=== PATIENT | male | born 1940 | race Caucasian/White ===

== ENCOUNTER → 2016-10-24 | Day surgery (SDC) | payer BC ==
[2016-10-18 09:15] VITALS: Ht 198.1 cm; Wt 95.5 kg
[~2016-10-24] VITALS: Ht 198.1 cm; Wt 95.5 kg
[~2016-10-24] MED LIST: 500ML BSS 0.3ML EPI 1:1000PF IRRIG ONE; ACETAMINOPHEN 325 MG TAB PO PRN; AMVISC PLUS 0.8ML SYRINGE INT OCU ONE; ATROPINE SULFATE 0.1 MG/ML 5ML SYR IV PRN; AcetaZOLAMIDE 250 MG TAB PO SCH; BETAXOLOL HCL 0.25% OP SUSP PER DROP CHARGE OPL SCH; BRIMONIDINE TART 0.2% OP SOLN PER DROP CHARGE ONE; BSS FLUSH ONE; ENDOCOAT 0.85ML SYRINGE INT OCU ONE; EpHEDrine SULFATE INJ 50 MG/ML AMP IV PRN; EpINEphrine INJ 1MG/ML AMP 1 MG/ML AMP ONE; GLUCTAB18 PO; LACTATED RINGER'S 1000ML 500 ML IV SCH; LIDOCAINE 4% OP SOLN DROP CHARGE ONE; LIDOCAINE 4% OP SOLN DROP CHARGE OPL SCH; LIDOCAINE HCL 1% MPF 2 ML VIAL ONE; MIDAZOLAM HCL 1 MG/ML 2ML VIAL ONE; MIX: 4ML BSS 1ML EPI 1:1000 PF INSTIL ONE; MOXIFLOXACIN OPH SOLN PER DROP CHARGE ONE; NAPR1TAB9 PO; OCUCOAT 1 ML SOLN IO ONE; POVIDONE-IODINE OP SOLN 30 ML BTL ONE; PRED1SUS3 OPL; PROPARACAINE 0.5% OP SOLN PER DROP CHARGE OPL SCH; TERA5CAP PO; TOBRAMYCIN/DEXAMETHASONE OPH OINT PER APPLN CHARGE ONE
--- NOTE | 2016-10-24 09:11 | History & Physical Bridge - [place] ---
H&P Re-Evaluation Bridge Note: I have examined the patient, reviewed the History & Physical and in the interval since the performance of the History & Physical I have noted the following changes of clinical significance: No changes noted
[2016-10-24] MEDS: PHENYLEPHRINE HCL 2.5% OP SOLN PER DROP CHARGE OPL SCH ×2 (10:17→10:22)
[2016-10-24] MEDS: TROPICAMIDE 1% OP SOLN PER DROP CHARGE OPL SCH ×2 (10:18→10:23)
[2016-10-24] MEDS: CYCLOPENTOLATE HCL 1% OP SOLN PER DROP CHARGE OPL SCH ×2 (10:19→10:24)
[2016-10-24] MEDS: MOXIFLOXACIN OPH SOLN PER DROP CHARGE OPL SCH ×2 (10:20→10:31)
--- NOTE | 2016-10-24 11:04 | Discharge Instructions-SurgCtr ---
Discharge Instructions Date of Service Oct 24, 2016. Visit Reason for Visit: Cataract Left Eye Discharge Discharge Diagnosis / Problem: lens implant left eye Discharge Goals Goal(s): Improve function Activity Recommendations Activity Limitations: resume your previous activity Lifting Limitations: no more than 10 pounds Exercise/Sports Limitations: gradually increase as tolerated May Resume Sexual Activity: when tolerated Shower/Bathe: tomorrow Driving or Machine Use: resume 1 day after discharge Anesthesia . Post Anesthesia Instructions: If you have had General Anesthesia or IV Sedation: * Do not drive today. * Resume driving when surgeon permits. * Do not make important decisions or sign legal documents today. * Call surgeon for: 1. Temperature elevations greater than 101 degrees F. 2. Uncontrollable pain. 3. Excessive bleeding. 4. Persistent nausea and vomiting. 5. Medication intolerance (nausea, vomiting or rash). * For nausea and vomiting use only clear liquids such as: tea, soda, bouillon until nausea subsides, then gradually increase diet as tolerated. * If you have any concerns or questions, call your surgeon's office. If physician is unavailable and it is an emergency, call 911 or go to the nearest emergency room. . Instructions / Follow-Up Instructions / Follow-Up ACTIVITY RECOMMENDATIONS: * Light activities. * Mild irritation and blurred vision are common for the first few days. * You may walk outside, read, watch television. * Redness around the white part of the eye is common. MEDICATIONS: Resume previous medications unless instructed otherwise by your surgeon. * Take white Diamox (Acetazolamide) tablet at 2 pm today. Start all eye drops at 2 pm today: * Eye drops (today and tomorrow): Prednisone - one drop in operative eye every 3 hours while awake Ofloxacin - one drop in operative eye every 3 hours while awake SPECIAL CARE INSTRUCTIONS: * Tape plastic shield over eye to sleep at night. Call your doctor at with any concerns or problems. FOLLOW UP VISIT: Follow-up with Dr Alicia at [place] office as scheduled. Diet Recommendations Home Diet: no limitations Procedures Procedures Performed: cataract extraction with lens implant Pending Studies Studies pending at discharge: no Medical Emergencies . Who to Call and When: Medical Emergencies: If at any time you feel your situation is an emergency, please call 911 immediately. . Non-Emergent Contact Non-Emergency issues call your: Global Account Manager Call Non-Emergent contact if: your pain is not controlled [phone] . . "Provider Documentation" section prepared by Christofer Alicia. .
--- NOTE | 2016-10-24 11:06 | [facility] Operative Report ---
Operative Report Date of Service Oct 24, 2016. Operative Report 1. PREOPERATIVE DIAGNOSIS: Senile nuclear cataract, left eye. 2. POSTOPERATIVE DIAGNOSIS: Senile nuclear cataract, left eye. 3. PROCEDURE: Phacoemulsification of left cataract with posterior chamber lens implant, type [employer], model MI60L, power +19.50 diopters. ANESTHESIA: Local standby. SURGEON: Dr. Alicia. COMPLICATIONS: None. OPERATING TIME: 10 minutes. 4. OPERATION AND FINDINGS: DESCRIPTION OF PROCEDURE: The left pupil was dilated. The anesthetic was administered using a topical technique. The left eye was prepped and draped. A speculum was placed. A clear corneal incision was formed. The chamber was filled with Amvisc Plus and Endocoat. Epinephrine solution was used. A paracentesis was placed. A capsulorrhexis was performed. The nucleus was hydrodissected. A dense lens was removed with phacoemulsification. Time was 4.36 seconds. The aspiration unit was used to remove the cortex. The capsule was filled with Amvisc Plus. The lens implant was folded and placed into the capsule. The incision was hydrated. The Amvisc was aspirated. The wound was secure. The chamber was deep. The pupil was round. Brimonidine, TobraDex ointment and Vigamox solution were placed. The speculum was removed. The patient was returned to the Recovery Room in stable condition. I attest to the content of the Intraoperative Record and any orders documented therein. Any exceptions are noted below. The scribe's documentation has been prepared in my presence, under my direction and personally reviewed by me in its entirety. I confirm that the note above accurately reflects all work, treatment, procedures, and medical decision making performed by me. I personally scribed for Christofer Alicia M.D. ([email or web address]) on 10/24/16 at 11:06. Electronically submitted by Zenaida Justin ([facility]).
[2016-10-24 11:10] VITALS: BP 121/73; PULSE 53; TEMP 36.5; O2SAT 95
--- NOTE | 2016-10-24 11:17 | Anesthesia Progress Nt - [facility] ---
Anesthesia Post Op Note Date & Time Oct 24, 2016 at 11:17 Vital Signs Pain Intensity: 0 Vital Signs Past 12 Hours Date Time Temp Pulse Resp B/P (MAP) Pulse Ox O2 Delivery O2 Flow Rate FiO2 10/24/16 11:10 36.5 53 16 121/73 (89) 95 Room Air 10/24/16 10:10 36.8 64 16 127/79 (95) 96 Room Air Notes Mental Status: alert / awake / arousable, participated in evaluation Pt Amnestic to Procedure: Yes Nausea / Vomiting: adequately controlled Pain: adequately controlled Airway Patency, RR, SpO2: stable & adequate BP & HR: stable & adequate Hydration State: stable & adequate Anesthetic Complications: no major complications apparent
== END | disposition home or self-care (01) ==
LOC: X.SURG 09:33
PROVIDERS: ATTEND Specialist
DX: H25.12 Age-related nuclear cataract, left eye (principal); Z90.89 Acquired absence of other organs; N18.3 Chronic kidney disease, stage 3 (moderate); Z87.891 Personal history of nicotine dependence

== ENCOUNTER 2017-06-02 00:13 | Emergency (ER) | payer BC, OTHER ==
[~2017-06-02] VITALS: Ht 196.9 cm; Wt 100.7 kg
[~2017-06-02 00:13] MED LIST changes: -500ML BSS 0.3ML EPI 1:1000PF IRRIG ONE; -ACETAMINOPHEN 325 MG TAB PO PRN; -AMVISC PLUS 0.8ML SYRINGE INT OCU ONE; -ATROPINE SULFATE 0.1 MG/ML 5ML SYR IV PRN; -AcetaZOLAMIDE 250 MG TAB PO SCH; -BETAXOLOL HCL 0.25% OP SUSP PER DROP CHARGE OPL SCH; -BRIMONIDINE TART 0.2% OP SOLN PER DROP CHARGE ONE; -BSS FLUSH ONE; -ENDOCOAT 0.85ML SYRINGE INT OCU ONE; -EpHEDrine SULFATE INJ 50 MG/ML AMP IV PRN; -EpINEphrine INJ 1MG/ML AMP 1 MG/ML AMP ONE; -LACTATED RINGER'S 1000ML 500 ML IV SCH; -LIDOCAINE 4% OP SOLN DROP CHARGE ONE; -LIDOCAINE 4% OP SOLN DROP CHARGE OPL SCH; -LIDOCAINE HCL 1% MPF 2 ML VIAL ONE; -MIDAZOLAM HCL 1 MG/ML 2ML VIAL ONE; -MIX: 4ML BSS 1ML EPI 1:1000 PF INSTIL ONE; -MOXIFLOXACIN OPH SOLN PER DROP CHARGE ONE; -OCUCOAT 1 ML SOLN IO ONE; -POVIDONE-IODINE OP SOLN 30 ML BTL ONE; -PROPARACAINE 0.5% OP SOLN PER DROP CHARGE OPL SCH; -TOBRAMYCIN/DEXAMETHASONE OPH OINT PER APPLN CHARGE ONE
[2017-06-02 00:15] VITALS: TEMP 36.4; Ht 196.9 cm; Wt 100.7 kg
--- NOTE | 2017-06-02 00:29 | EMERGENCY ROOM VISIT NOTE ---
History Report prepared by Senaitibpriscilla: Juliana Delgado Under the Supervision of: Dr. Alexi Rayo M.D. First contact with patient: 00:21 Chief Complaint: HEAD INJURY (MINOR) Stated Complaint: HEAD WOUND History of Present Illness The patient is a 77 year old male who presents to the Emergency Room with complaints of persistent bleeding from right side of head that occurred about an hour ago. The patient notes he is not on any blood thinners. He reports he had a glass of wine with dinner. The patient denies any other recent bleeding or blood in stool. Source of History: patient Onset: an hour ago Position: head Review of Systems See HPI for pertinent positives & negatives. A total of 10 systems reviewed and were otherwise negative. 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 Family History No pertinent family history Social History Smoking Status: Former Smoker Housing Status: lives alone Current/Historical Medications Scheduled Glucosamine-Chondroitin (Osteo Bi-Flex Regular Str), 2 TAB PO QAM Naproxen (Aleve), 2 TABS PO QAM Prednisolone Acetate (Ophth) (Pred Forte 1% Oph), 1 DROPS OPL DIRECTED Terazosin (Hytrin), 5 MG PO HS Allergies Coded Allergies: No Known Allergies (Verified , 10/24/16) Physical Exam Vital Signs Date Time Temp Pulse Resp B/P (MAP) Pulse Ox O2 Delivery O2 Flow Rate FiO2 06/02/17 00:58 69 20 138/78 96 06/02/17 00:15 36.4 74 20 159/77 98 Room Air Physical Exam GENERAL: Patient is well appearing and in no acute distress. HEAD/SCALP: 0.5 cm raised mole right scalp with skin tear through middle and small piece of skin flap hanging to side. Mild continuous venous oozing with some irritation of mole. NEUROLOGIC: Alert and oriented, no acute motor or sensory deficits, no focal weakness, cranial nerves grossly intact. SKIN: No rash, no jaundice, no diaphoresis. Medical Decision & Procedures ED Course 0021: The patient was evaluated in room A9B. A complete history and physical exam was performed. 0100: Reevaluated the patient. Discussed results and discharge instructions: He verbalized understanding and agreement. The patient is ready for discharge. Medical Decision 77 yr old male arrives with complaint of right scalp bleed. On exam appears there is a small mole with a tear in skin right through middle of it. This piece of avulsed skin was pulled away easily. Mole itself was unknown to patient and given appearance I suspect it could be CA though as it is quite irritated and bleeding it is tough to get good eval of it. It continues to bleed however and even with some lidocaine/epi injection there is slight oozing. In order to avoid complicating future biopsy I opted to just tamponade it with Dermabond which worked well. No other bleeding/bruising thus I feel doing lab work-up not indicated. Highly advised need for PCP follow up to re- evaluate this lesion. Reviewed symptoms requiring RTED. Medication Reconcilliation Current Medication List: was personally reviewed by me Blood Pressure Screening Patient's blood pressure: Normal blood pressure Impression Primary Impression: Bleeding skin mole Scribe Attestation The scribe's documentation has been prepared under my direction and personally reviewed by me in its entirety. I confirm that the note above accurately reflects all work, treatment, procedures, and medical decision making performed by me. Departure Information Dispostion Home / Self-Care Referrals Nixon Crandall M.D. (PCP) Patient Instructions [facility] Additional Instructions Dermabond will slowly peel off over next 5 to 7 days. Do not pick, peel or scrub this area. Showering with soap is ok after first 12 hours. Return if swelling, fevers, drainage, increased bleeding or other concerns. If you notice other bleeding, bruising, etc return or see PCP as soon as possible. Have mole rechecked in 1 to 2 weeks to make sure it does not require biopsy.
[2017-06-02] MEDS ORDERED: LIDOCAINE/EPINEPHRINE 1% 20 ML VIAL ONE (00:54)
[2017-06-02 00:58] VITALS: BP 138/78; PULSE 69; O2SAT 96
== END 2017-06-02 00:59 | disposition home or self-care (01) ==
LOC: C.EDB 00:13 → C.EDA 00:59
DX: S01.01XA Laceration without foreign body of scalp, initial encounter (principal); X58.XXXA Exposure to other specified factors, initial encounter; Z79.1 Long term (current) use of non-steroidal anti-inflammatories (NSAID); N40.1 Benign prostatic hyperplasia with lower urinary tract symptoms; M96.1 Postlaminectomy syndrome, not elsewhere classified; Z87.891 Personal history of nicotine dependence

== ENCOUNTER 2020-09-23 18:04 | Inpatient (IN) ==
[2020-09-23 18:55] LABS: Basophils # (auto) 0.02 K/uL (0-0.2); Basophils % (auto) 0.5 %; Eosinophils # (auto) 0.15 K/uL (0-0.5); Eosinophils % (auto) 3.8 %; Hematocrit (blood only) 42.1 % (42-52); Hemoglobin 14.2 g/dL (14.0-18.0); Immature Granulocytes # (auto) 0.01 K/uL (0.00-0.02); Immature Granulocytes % (auto) 0.3 %; Lymphocytes # (auto) 1.01 K/uL (1.2-3.4); Lymphocytes % (auto) 25.3 %; Mean Corpuscular Hemoglobin 31.6 pg (25-34); Mean Corpuscular Hgb Conc 33.7 g/dL (32-36); Mean Corpuscular Volume 93.8 fL (80-100); Mean Platelet Volume 10.1 fL (7.4-10.4); Monocytes # (auto) 0.29 K/uL (0.11-0.59); Monocytes % (auto) 7.3 %; Neutrophils # (auto) 2.52 K/uL (1.4-6.5); Neutrophils % (auto) 62.8 %; Platelet Count 182 K/uL (130-400); RDW Coefficient of Variation 13.3 % (11.5-14.5); RDW Standard Deviation 45.4 fL (36.4-46.3); Red Blood Count 4.49 M/uL (4.7-6.1)
[2020-09-23 19:13] LABS: Alanine Aminotransferase 18 U/L (12-78); Albumin Level 3.4 gm/dl (3.4-5.0); Aspartate Aminotransferase 18 U/L (15-37); BUN Creatinine Ratio 16.7 (10-20); Blood Urea Nitrogen 21 mg/dl (7-18); Calcium 8.5 mg/dl (8.5-10.1); Carbon Dioxide 29 mmol/L (21-32); Chloride 108 mmol/L (98-107); Creatinine Clr Calc Pharmacy 60.5 ml/min; Est GFR (African American) 61.3 ml/min; Est GFR (Non-African American) 52.9 ml/min; Glucose 85 mg/dl (70-99); Potassium 3.9 mmol/L (3.5-5.1); Sodium 139 mmol/L (136-145)
[2020-09-23 19:23] LABS: Alkaline Phosphatase 61 U/L (45-117); Bilirubin,Total 0.4 mg/dl (0.2-1); Globulin 3.3 gm/dl (2.5-4.0); Total Protein 6.7 gm/dl (6.4-8.2); Troponin I < 0.015 ng/ml (0-0.045)
--- NOTE | 2020-09-23 20:12 | XRay Report ---
SINGLE VIEW CHEST CLINICAL HISTORY: Generalized weakness. FINDINGS: 2 AP, portable, upright chest radiographs are compared to study dated 10/22/2006. The heart is enlarged. The pulmonary vasculature is noncongested. Emphysematous changes suspected. Chronic inte rstitial thickening is similar to previous. No airspace consolidation or pleural effusion is identifi ed. No pneumothorax is seen. The skeletal structures are osteopenic. The bony thorax is grossly intac t. IMPRESSION: No active disease in the chest. ACT 112: Negative or not required by law. Electronically signed by: Toni Rodrigues M.D. 09/23/2020 8:11 PM
--- NOTE | 2020-09-23 20:27 | Emergency Department Note ---
Impression & Plan Syncope, Leukopenia, Abrasion of face ED Provider Note NAME: Cathy SOLIS AGE: 80 SEX: M : 1940 ARRIVES VIA: Walk-In INFORMANT: Patient, ED PROVIDER(S): Sp Yi MD Chief Complaint: Syncope HPI: Patient does present due to concern for possible syncope. The patient states that he was sitting at his desk. The patient stated he felt slightly strange and started to get up and then subsequently found himself on the floor. The patient believes he likely struck carpeted surface. The patient denies any fevers chills chest pain shortness of breath nausea or vomiting. Patient does not take any blood thinning medications. Patient denies any bowel or bladder incontinence or tongue biting. No history of seizures. The patient states that he has had 2 episodes of syncope prior once in 1988 and again in 16 years ago. Patient does not take any blood thinning medications. The patient does not have any current symptoms at the time ROS: See HPI for pertinent positives and negatives. A total of 10 systems were reviewed and otherwise negative. Past medical history: See below Surgical history: See below Social history: See below Physical Exam: GENERAL: Wearing a mask. NAD, non-toxic. EYE EXAM: Normal conjunctiva. PERRL, no anisocoria and EOM's grossly intact w/o pain. Face: Left-sided facial abrasions without obvious deformity or TTP. NECK: Supple, no nuchal rigidity, no adenopathy, non-tender. No signs of meningismus. No midline C-spine TTP. LUNGS: Clear to auscultation. Normal chest wall mechanics. HEART: Bradycardic and regular, no MRG. ABDOMEN: Abdomen soft, non-tender, normo-active bowel sounds, no masses, no rebound or guarding. BACK: No CVA TTP. SKIN: No rashes and no bruising. UPPER EXTREMITIES: Upper extremities are grossly normal. No TTP or obvious deformity. LOWER EXTREMITIES: Grossly normal, no edema. No TTP or obvious deformity. NEURO EXAM: A&O x3, cranial nerves II-XII grossly intact, normal speech, moves all 4 extremities on command w/o issue. Differential diagnoses: Vasovagal event, dehydration, infection, hypoglycemia, electrolyte abnormalities, cardiac sources, intracerebral event, pulmonary embolism, seizure, toxicologic, neurologic, as well as other pathologies. Course: Patient was seen and evaluated the bedside. Full history physical exam was performed. EKG interpreted by me Sinus bradycardia, rate of 57, first-degree AV block, normal QRS, normal axis, T wave version in aVL not in contiguous leads. No ST changes. No obvious arrhythmia. Imaging Studies: See below Cardiac monitoring: An order was placed for continuous cardiac monitoring. The monitor shows a rate of 58 with sinus bradycardia rhythm. MDM: Patient was seen due to concern for syncope. Blood work is obtained along with a CT of the head and cervical spine given the patient's presumptive fall. Patient is a nonfocal neurologic exam. Patient does have some mild leukopenia. The patient is vaccinated for Covid. Covid negative. Patient's EKG without obvious arrhythmia but given the patient's age and syncope believe the patient would benefit from continued observation. I did speak with the on-call hospitalist Dr. Zarco and the patient was admitted by [facility]. Past Med/Surg History Medical History BPH (benign prostatic hyperplasia) Social History Smoking Status: Never smoker Hx Alcohol Use: Yes Alcohol type: wine Hx Substance Use: No Preferred Language: Turkish Communication Ability: Effective Beliefs That Will Affect Care: None Current Living Situation: Alone Other Information That Helps Us Care for You: No Feels Safe at Home: Yes Assistive Devices: Glasses Allergies Allergies Allergy/AdvReac Type Severity Reaction Status Date / Time No Known Allergies Allergy Mild Verified 09/23/20 20:46 Home Meds Home Medications Medication Instructions Recorded Confirmed acetaminophen [Tylenol Extra 1,000 mg PO QAM 09/23/20 09/23/20 Strength] finasteride 5 mg PO DAILY 09/23/20 09/23/20 glucosamine-chondroitin [Osteo 2 tab PO DAILY 09/23/20 09/23/20 Bi-Flex] terazosin 10 mg PO HS 09/23/20 09/23/20 Results & Data (ED) Vital Signs Vital Signs - 24 hr 09/23/20 18:10 09/23/20 18:43 09/23/20 20:21 Temperature 36.8 C Temperature Source Temporal Artery Scan Pulse Rate - Lying 60 Pulse Rate - Sitting 61 Pulse Rate - Standing 63 Pulse Rate 65 67 Pulse Rate [Right Finger] Pulse Rate from SpO2 Sensor 62 Respiratory Rate 19 23 Respiratory Effort / Characteristics Non-Labored Respiratory Depth Normal Blood Pressure - Lying 137/77 Blood Pressure - Sitting 136/87 Blood Pressure- Standing 130/80 Blood Pressure 141/75 H 143/74 H Blood Pressure [Right Arm] Blood Pressure Mean 97 97 Blood Pressure Mean [Right Arm] Blood Pressure Position [Right Arm] Pulse Oximetry 98 100 Oxygen Delivery Method Room Air Sepsis Recent Fever Within 48 Hours No Sepsis New/Unexplained Change in Mental Status N/A Sepsis Action Taken by Nursing No Action Required 09/23/20 20:26 09/23/20 20:54 09/23/20 21:00 Temperature Temperature Source Pulse Rate - Lying Pulse Rate - Sitting Pulse Rate - Standing Pulse Rate 62 63 Pulse Rate [Right Finger] 60 Pulse Rate from SpO2 Sensor 62 Respiratory Rate 16 17 26 H Respiratory Effort / Characteristics Respiratory Depth Blood Pressure - Lying Blood Pressure - Sitting Blood Pressure- Standing Blood Pressure Blood Pressure [Right Arm] 143/74 H 138/71 Blood Pressure Mean Blood Pressure Mean [Right Arm] 97 93 Blood Pressure Position [Right Arm] Sitting Pulse Oximetry 99 100 Oxygen Delivery Method Room Air Sepsis Recent Fever Within 48 Hours Sepsis New/Unexplained Change in Mental Status Sepsis Action Taken by Nursing 09/23/20 21:30 09/23/20 22:00 09/23/20 22:30 Temperature Temperature Source Pulse Rate - Lying Pulse Rate - Sitting Pulse Rate - Standing Pulse Rate 65 60 60 Pulse Rate [Right Finger] Pulse Rate from SpO2 Sensor 66 58 L 60 Respiratory Rate 13 14 23 Respiratory Effort / Characteristics Respiratory Depth Blood Pressure - Lying Blood Pressure - Sitting Blood Pressure- Standing Blood Pressure Blood Pressure [Right Arm] Blood Pressure Mean Blood Pressure Mean [Right Arm] Blood Pressure Position [Right Arm] Pulse Oximetry 96 98 97 Oxygen Delivery Method Sepsis Recent Fever Within 48 Hours Sepsis New/Unexplained Change in Mental Status Sepsis Action Taken by Retirement Medications Current Medication List: was personally reviewed by me Laboratory Data Attestation: I reviewed the patient's lab results. Result diagrams: 09/23/20 18:39 09/23/20 18:39 Lab Results 09/23/20 09/23/20 09/23/20 Range/Units 18:39 18:39 20:50 WBC 4.00 L (4.8-10.8) K/uL RBC 4.49 L (4.7-6.1) M/uL Hgb 14.2 (14.0-18.0) g/dL Hct 42.1 (42-52) % MCV 93.8 (80-100) fL MCH 31.6 (25-34) pg MCHC 33.7 (32-36) g/dL RDW Std Deviation 45.4 (36.4-46.3) fL RDW Coeff of Cookie 13.3 (11.5-14.5) % Plt Count 182 (130-400) K/uL MPV 10.1 (7.4-10.4) fL Immature Gran % (Auto) 0.3 % Neut % (Auto) 62.8 % Lymph % (Auto) 25.3 % Harlan % (Auto) 7.3 % Eos % (Auto) 3.8 % Baso % (Auto) 0.5 % Neut # (Auto) 2.52 (1.4-6.5) K/uL Lymph # (Auto) 1.01 L (1.2-3.4) K/uL Harlan # (Auto) 0.29 (0.11-0.59) K/uL Eos # (Auto) 0.15 (0-0.5) K/uL Baso # (Auto) 0.02 (0-0.2) K/uL Immature Gran # (Auto) 0.01 (0.00-0.02) K/uL Sodium 139 (136-145) mmol/L Potassium 3.9 (3.5-5.1) mmol/L Chloride 108 H (98-107) mmol/L Carbon Dioxide 29 (21-32) mmol/L Anion Gap 2.0 L (3-11) BUN 21 H (7-18) mg/dl Creatinine 1.28 (0.6-1.4) mg/dl Est Cr Clr Drug Dosing 60.5 ml/min Est GFR ( Amer) 61.3 ml/min Est GFR (Non-Af Amer) 52.9 ml/min BUN/Creatinine Ratio 16.7 (10-20) Glucose 85 (70-99) mg/dl Calcium 8.5 (8.5-10.1) mg/dl Magnesium 2.0 (1.8-2.4) mg/dl Total Bilirubin 0.4 (0.2-1) mg/dl AST 18 (15-37) U/L ALT 18 (12-78) U/L Alkaline Phosphatase 61 (45-117) U/L Troponin I < 0.015 (0-0.045) ng/ml Total Protein 6.7 (6.4-8.2) gm/dl Albumin 3.4 (3.4-5.0) gm/dl Globulin 3.3 (2.5-4.0) gm/dl Albumin/Globulin Ratio 1.0 (0.9-2) TSH 4.250 (0.300-4.500) uIu/ml COVID-19 Eval Order Covid19 at [facility] SARS-CoV-2 (PCR) (Negative) 09/23/20 Range/Units 20:50 WBC (4.8-10.8) K/uL RBC (4.7-6.1) M/uL Hgb (14.0-18.0) g/dL Hct (42-52) % MCV (80-100) fL MCH (25-34) pg MCHC (32-36) g/dL RDW Std Deviation (36.4-46.3) fL RDW Coeff of Cookie (11.5-14.5) % Plt Count (130-400) K/uL MPV (7.4-10.4) fL Immature Gran % (Auto) % Neut % (Auto) % Lymph % (Auto) % Harlan % (Auto) % Eos % (Auto) % Baso % (Auto) % Neut # (Auto) (1.4-6.5) K/uL Lymph # (Auto) (1.2-3.4) K/uL Harlan # (Auto) (0.11-0.59) K/uL Eos # (Auto) (0-0.5) K/uL Baso # (Auto) (0-0.2) K/uL Immature Gran # (Auto) (0.00-0.02) K/uL Sodium (136-145) mmol/L Potassium (3.5-5.1) mmol/L Chloride (98-107) mmol/L Carbon Dioxide (21-32) mmol/L Anion Gap (3-11) BUN (7-18) mg/dl Creatinine (0.6-1.4) mg/dl Est Cr Clr Drug Dosing ml/min Est GFR ( Amer) ml/min Est GFR (Non-Af Amer) ml/min BUN/Creatinine Ratio (10-20) Glucose (70-99) mg/dl Calcium (8.5-10.1) mg/dl Magnesium (1.8-2.4) mg/dl Total Bilirubin (0.2-1) mg/dl AST (15-37) U/L ALT (12-78) U/L Alkaline Phosphatase (45-117) U/L Troponin I (0-0.045) ng/ml Total Protein (6.4-8.2) gm/dl Albumin (3.4-5.0) gm/dl Globulin (2.5-4.0) gm/dl Albumin/Globulin Ratio (0.9-2) TSH (0.300-4.500) uIu/ml COVID-19 Eval Order SARS-CoV-2 (PCR) NEGATIVE (Negative) Administered Medications Discontinued Medications Sodium Chloride (Nss 1000ml) 500 mls @ 999 mls/hr IV .Q31M ONE Stop: 09/23/20 21:10 Last Infusion: 09/23/20 22:01 Dose: 0 mls/hr Documented by: [id number] Admin: 09/23/20 20:54 Dose: 999 mls/hr Documented by: [id number] Imaging Data Radiologist's Impression: Chest X-Ray 09/23/20 18:21 SINGLE VIEW CHEST CLINICAL HISTORY: Generalized weakness. FINDINGS: 2 AP, portable, upright chest radiographs are compared to study dated 10/22/2006. The heart is enlarged. The pulmonary vasculature is noncongested. Emphysematous changes suspected. Chronic interstitial thickening is similar to previous. No airspace consolidation or pleural effusion is identified. No pneu mothorax is seen. The skeletal structures are osteopenic. The bony thorax is grossly intact. IMPRESSION: No active disease in the chest. ACT 112: Negative or not required by law. Electronically signed by: Toni Rodrigues M.D. 09/23/2020 8:[address] 09/23/20 20:40 CT SCAN OF THE CERVICAL SPINE CLINICAL HISTORY: Syncope. Fall. COMPARISON STUDY: CT of the neck dated 08/13/2009. TECHNIQUE: CT scan of the cervical spine is performed from the skull base to the upper thoracic spine. Images are reviewed in the axial, sagittal, and coronal planes. IV contrast was not administered for this examination. A dose lowering technique was utilized adhering to the principles of ALARA. CT DOSE: 1317.63 mGy.cm FINDINGS: Skeletal structures: The skeletal structures are osteopenic. There is no evidence of fracture or subluxation involving the cervical spine. Vertebral body height is maintained. There is minimal anterolisthesis at C4-C5 and C7-T1. Alignment is otherwise maintained. There is straightening of the cervical lordosis. Anterior osteophytes are seen throughout. The odontoid process and lateral masses are intact. The atlantoaxial articulation is preserved noting productive degenerative change. The spinous processes appear intact. There is moderate multilevel cervical spondylosis. Uncovertebral and facet arthropathy contribute to neural foraminal stenosis at several levels. Intervertebral discs: There is advanced disc space narrowing with bony fusion at C6-C7. Moderate disc space narrowing seen at C5-C6 and C7-T1. Mild narrowing is seen at the remaining cervical levels. Central canal: Posterior disc osteophyte complexes at C5-C6 and C6-C7 likely contribute to acquired compromise of the central canal. Soft tissues: The prevertebral and paraspinous soft tissues are within normal limits. Calvarium: The visualized calvarium at the skull base appears intact. Brain parenchyma: Partially visualized brain parenchyma at the skull base is within normal limits. Sinuses and mastoids: The visualized paranasal sinuses are clear. The mastoid air cells are well pneumatized. Lung apices: Clear as visualized noting apical scarring. IMPRESSION: 1. There is no evidence of fracture or subluxation involving the cervical spine. 2. Osteopenia and spondylotic change as above. ACT 112: Negative or not required by law. Electronically signed by: Toni Rodrigues M.D. 09/23/2020 9:[address] 09/23/20 20:40 CT SCAN OF THE BRAIN WITHOUT IV CONTRAST CLINICAL HISTORY: Syncope. Fall. Head injury. COMPARISON STUDY: CT of the brain dated 08/13/2009. TECHNIQUE: Unenhanced axial CT scan of the brain is performed from the vertex to the skull base. A dose lowering technique was utilized adhering to the principles of ALARA. FINDINGS: Brain parenchyma: There are age-related involutional changes noting mild subcortical and periventricular microangiopathic change. There is no hemorrhage, mass effect, or evidence of acute territorial ischemia by CT criteria. A 3.5 cm arachnoid cyst is again seen in the left anterior temporal fossa. Jalloh-white matter differentiation is preserved. No extra-axial fluid collection is seen. Ventricles, sulci, cisterns: Prominent secondary to involutional change. Intracranial vasculature: There is atherosclerotic calcification of the cavernous carotid arteries. Calvarium: The skeletal structures are osteopenic. There is no depressed calvarial fracture. Sinuses and mastoids: The visualized paranasal sinuses are clear. The mastoid air cells are well pneumatized. Orbits: The bony orbits are grossly intact. There are bilateral ocular lens implants. IMPRESSION: There is no hemorrhage, mass effect, or evidence of acute territorial ischemia by CT criteria. ACT 112: Negative or not required by law. Electronically signed by: Toni Rodrigues M.D. 09/23/2020 9:22 PM Discharge Plan Visit Data Chief Complaint: Syncope (Near Syncope) Stated Complaint: SYNCOPE, FACIAL INJURY ED Provider: Sp Yi Discharge Problem: Syncope, Leukopenia, Abrasion of face Patient Disposition: Admitted As Inpatient Discharge Instructions Interventions: ED Discharge Assessment Last Done: 09/23/20 23:15 Discharge Problem: Syncope Qualifiers: Syncope type: unspecified Qualified Code(s): R55 - Syncope and collapse Leukopenia Qualifiers: Leukopenia type: unspecified Qualified Code(s): D72.819 - Decreased white blood cell count, unspecified Abrasion of face Qualifiers: Encounter type: initial encounter Qualified Code(s): S00.81XA - Abrasion of other part of head, initial encounter
[2020-09-23] MEDS ORDERED: SODIUM CHLORIDE 0.9% 1000ML 500 ML IV ONE (20:40)
--- NOTE | 2020-09-23 21:23 | CT Scan Report ---
CT SCAN OF THE BRAIN WITHOUT IV CONTRAST CLINICAL HISTORY: Syncope. Fall. Head injury. COMPARISON STUDY: CT of the brain dated 08/13/2009. TECHNIQUE: Unenhanced axial CT scan of the brain is performed from the vertex to the skull base. A do se lowering technique was utilized adhering to the principles of ALARA. FINDINGS: Brain parenchyma: There are age-related involutional changes noting mild subcortical and periventric ular microangiopathic change. There is no hemorrhage, mass effect, or evidence of acute territorial i schemia by CT criteria. A 3.5 cm arachnoid cyst is again seen in the left anterior temporal fossa. Gr ay-white matter differentiation is preserved. No extra-axial fluid collection is seen. Ventricles, sulci, cisterns: Prominent secondary to involutional change. Intracranial vasculature: There is atherosclerotic calcification of the cavernous carotid arteries. Calvarium: The skeletal structures are osteopenic. There is no depressed calvarial fracture. Sinuses and mastoids: The visualized paranasal sinuses are clear. The mastoid air cells are well pneu matized. Orbits: The bony orbits are grossly intact. There are bilateral ocular lens implants. IMPRESSION: There is no hemorrhage, mass effect, or evidence of acute territorial ischemia by CT crit radha. ACT 112: Negative or not required by law. Electronically signed by: Toni Rodrigues M.D. 09/23/2020 9:22 PM
--- NOTE | 2020-09-23 21:28 | CT Scan Report ---
CT SCAN OF THE CERVICAL SPINE CLINICAL HISTORY: Syncope. Fall. COMPARISON STUDY: CT of the neck dated 08/13/2009. TECHNIQUE: CT scan of the cervical spine is performed from the skull base to the upper thoracic spine . Images are reviewed in the axial, sagittal, and coronal planes. IV contrast was not administered fo r this examination. A dose lowering technique was utilized adhering to the principles of ALARA. CT DOSE: 1317.63 mGy.cm FINDINGS: Skeletal structures: The skeletal structures are osteopenic. There is no evidence of fracture or subl uxation involving the cervical spine. Vertebral body height is maintained. There is minimal anterolis thesis at C4-C5 and C7-T1. Alignment is otherwise maintained. There is straightening of the cervical lordosis. Anterior osteophytes are seen throughout. The odontoid process and lateral masses are intac t. The atlantoaxial articulation is preserved noting productive degenerative change. The spinous proc esses appear intact. There is moderate multilevel cervical spondylosis. Uncovertebral and facet arthr opathy contribute to neural foraminal stenosis at several levels. Intervertebral discs: There is advanced disc space narrowing with bony fusion at C6-C7. Moderate disc space narrowing seen at C5-C6 and C7-T1. Mild narrowing is seen at the remaining cervical levels. Central canal: Posterior disc osteophyte complexes at C5-C6 and C6-C7 likely contribute to acquired c ompromise of the central canal. Soft tissues: The prevertebral and paraspinous soft tissues are within normal limits. Calvarium: The visualized calvarium at the skull base appears intact. Brain parenchyma: Partially visualized brain parenchyma at the skull base is within normal limits. Sinuses and mastoids: The visualized paranasal sinuses are clear. The mastoid air cells are well pneu matized. Lung apices: Clear as visualized noting apical scarring. IMPRESSION: 1. There is no evidence of fracture or subluxation involving the cervical spine. 2. Osteopenia and spondylotic change as above. ACT 112: Negative or not required by law. Electronically signed by: Toni Rodrigues M.D. 09/23/2020 9:26 PM
[2020-09-23 23:26] LABS: Appearance Urine Clear (Clear); Bilirubin Urine Negative (Negative); Blood Urine Negative (Negative); Color Urine Yellow; Glucose Urine UA Negative (Negative); Ketones Urine Negative (Negative); Leukocyte Esterase Urine Negative (Negative); Nitrite Urine Negative (Negative); Protein Urine Negative (Negative); Specific Gravity Urine 1.016 (1.000-1.030); Urobilinogen Urine Negative (Negative); pH Urine 7.5 (4.5-7.5)
--- NOTE | 2020-09-23 23:46 | History and Physical Report ---
DATE OF ADMISSION: 09/23/2020 CHIEF COMPLAINT: Syncope. HISTORY OF PRESENT ILLNESS: A 80-year-old male with past medical history significant for chronic kidney disease stage IIIA, BPH, history of displacement of lumbar disk, history of colon polyps, who lives alone, comes because of syncope. The patient was sitting in a chair and he was trying to get up and just he turned on the chair and the next thing he remembers he was fallen on the floor and he lost consciousness for a few seconds. After that he was able to get up and he saw blood in his hand because the hand was close to his head and there was a bruise on the left side of his head. Because of the bruise he came to the ER. Currently, resting comfortably and hemodynamically stable. Denies any chest pain. No shortness of breath, no cough, no fever, no chills, no headache, no blurred visions, no double vision, no earache, no runny nose, no sore throat, no nausea, no abdominal pain. Normal bowel and bladder movements. He has BPH and he takes medications for that and no change in medications recently. He says in 2004 when he was in the [place] he had 2 syncopal episodes and he ended up in the hospital for about a week and after all the workup, he was told he was dehydrated,.He says he is eating and drinking fine and he works out at home and when he is working out, no complaint of chest pain or shortness of breath. ALLERGIES: No known drug allergies. PAST MEDICAL HISTORY: As mentioned above. PAST SURGICAL HISTORY: Colonoscopies, cystoscopy, GreenLight laser, appendectomy, revision of lumbar disk arthroplasty. MEDICATIONS: The patient on Tylenol p.r.n., finasteride 5 mg p.o. daily, glucosamine chondroitin 2 tablets daily, terazosin 10 mg p.o. at bedtime. FAMILY HISTORY: Significant for mother had brain cancer, father had stroke. SOCIAL HISTORY: Single. Quit smoking in 2012, smoked three-fourths pack a day for half year. Alcohol, 7 standard drinks of alcohol per week, a glass of wine a day. No drug use. REVIEW OF SYSTEMS: As per HPI. Rest of the review of systems is negative. PHYSICAL EXAMINATION: GENERAL: The patient is of moderate build, not in acute distress. VITAL SIGNS: Temperature 36.8, pulse 60, respiratory rate 14, blood pressure 143/74, oxygen 98% on room air. HEENT: Pupils equal, round, and reactive to light. Oral mucosa moist. NECK: No JVD or neck masses. CARDIOVASCULAR: S1 and S2 heard. Regular rate and rhythm. No murmur, no gallop. RESPIRATORY SYSTEM: Normal AP diameter. No accessory muscle use. No wheezing, no crackles. ABDOMEN: Soft, bowel sounds present, nontender, no distention. CENTRAL NERVOUS SYSTEM: Cranial nerves II-XII grossly intact, nonfocal. EXTREMITIES: No edema, no erythema. LABORATORY DATA: WBC 4, hemoglobin 14.2, hematocrit 42.1, platelets 182. Sodium 139, potassium 3.9, chloride 108, bicarbonate 29, BUN 21, creatinine 1.2, serum glucose 85, calcium 8.5, magnesium 2, total bilirubin 0.4, AST 18, ALT 18, alkaline phosphatase 61. Troponin I less than 0.015. TSH is 4.2. SARS-CoV-2 PCR negative. IMAGING DATA: CT of the head, no acute findings. CT of the cervical spine, osteopenia and spondylitic changes, otherwise no acute findings. Chest x-ray, no active disease in the chest. EKG: Sinus bradycardia with first-degree AV block, no significant change was found. ASSESSMENT AND PLAN: This is a 80-year-old male, who presents with syncope. 1. Syncope: He has history of syncopes in the past. Currently initial workup is unremarkable. We will observe in tele floor. We will check orthostatics. We will follow troponins, echo, carotid Doppler. Consult cardiology in a.m. for further recommendations. 2. History of benign prostatic hyperplasia: Continue home medications. 3. Deep venous thrombosis prophylaxis: Sequential compression devices. DISPOSITION: Observe in tele floor. Expect to discharge home and follow up with family doctor. Addendum; Porsche tobin was called while patient was getting his carotid US as his heart rates dropped down into asystole for few seconds and patinet seemed unresponsive but heart rates came back to 50's and 60's and patient was mentating fine declining any complaints and his BP was ok. He was transferred back to his room on tele floor. After coming to floor when he sat on bed trying to micturate in urinal his heart rates dropped into 30's. After lying down they came up again. Again later around 3:30 -4am porsche tobin was again called as patient again went into asystole but before atropine given his heart rates improved. Then after few minutes heart rates dropped again and patient .. Atropine was given this time but it did not improved his heart rates ,they were hovering around 40's. Patient seems somewhat drowsy. Feeling dizzy before episodes.Cardiology was notified and advised to start on dopamine gtt if bradycardic after atropine. Dopamine gtt was started on transferred the patient to ICU. Repeat ekg in sinus rhythm. On Dopamine drip while micturating his heart rates were again dropping below 60's. Cardiology saw the patient and advised to continue dopamine drip for now and plan for pacemaker. Lyme IgM is positive. Final confirmation pending. Patient denies any tick bites.Started on Rocephin. Job ID: [id number] [id number]
[2020-09-23] MEDS ORDERED: NITROGLYCERIN SL 0.4 MG/TAB TAB SL PRN (23:59)
[2020-09-23] MEDS ORDERED: SODIUM CHLORIDE 0.9% 1000ML 1,000 ML IV SCH (23:59)
[2020-09-23] MEDS ORDERED: ACETAMINOPHEN 325 MG TAB PO PRN (23:59)
[2020-09-24] MEDS ORDERED: ATROPINE SULFATE 0.1 MG/ML 10ML SYR IV PRN ×3 (01:47→11:50)
[2020-09-24 03:53] LABS: Basophils # (auto) 0.02 K/uL (0-0.2); Basophils % (auto) 0.4 %; Eosinophils # (auto) 0.12 K/uL (0-0.5); Eosinophils % (auto) 2.3 %; Hematocrit (blood only) 41.3 % (42-52); Hemoglobin 14.2 g/dL (14.0-18.0); Immature Granulocytes # (auto) 0.01 K/uL (0.00-0.02); Immature Granulocytes % (auto) 0.2 %; Lymphocytes # (auto) 1.03 K/uL (1.2-3.4); Lymphocytes % (auto) 20.1 %; Mean Corpuscular Hemoglobin 31.8 pg (25-34); Mean Corpuscular Hgb Conc 34.4 g/dL (32-36); Mean Corpuscular Volume 92.6 fL (80-100); Monocytes % (auto) 7.8 %; Neutrophils # (auto) 3.54 K/uL (1.4-6.5); Neutrophils % (auto) 69.2 %; Platelet Count 174 K/uL (130-400); RDW Coefficient of Variation 13.1 % (11.5-14.5); RDW Standard Deviation 44.7 fL (36.4-46.3); Red Blood Count 4.46 M/uL (4.7-6.1); White Blood Count 5.12 K/uL (4.8-10.8)
[2020-09-24 04:07] LABS: D Dimer 1130 ug/L FEU (0-500)
[2020-09-24] MEDS ORDERED: STAT IV Infusion **Titration per Protocol STA (04:10)
[2020-09-24] MEDS ORDERED: DOPamine / D5W 400 MG/250 ML BAG IV SCH (04:15)
[2020-09-24] MEDS ORDERED: DOPamine 400MG / 250ML D5W IV ONE (04:17)
[2020-09-24 04:18] LABS: BUN Creatinine Ratio 18.6 (10-20); Blood Urea Nitrogen 18 mg/dl (7-18); Calcium 8.3 mg/dl (8.5-10.1); Carbon Dioxide 28 mmol/L (21-32); Chloride 109 mmol/L (98-107); Creatinine Clr Calc Pharmacy 79.8 ml/min; Est GFR (African American) 85.7 ml/min; Est GFR (Non-African American) 73.9 ml/min; Glucose 97 mg/dl (70-99); Potassium 3.6 mmol/L (3.5-5.1); Sodium 140 mmol/L (136-145)
--- NOTE | 2020-09-24 04:34 | Critical Care Consultation ---
Date of Consultation September 24, 2020 Assessment & Plan (1) Admitted to intensive care unit: Reason Critically Ill: 80-year-old male admitted with syncopal event and found to have multiple sinus pauses with sinus arrest of greater than 18.5 seconds requiring close hemodynamic monitoring for ongoing sinus pauses and need for addition of dopamine. NEURO - * CAM ICU: NEGATIVE * Head Injury: * s/p syncopal event. * CT Head/Cervical Spine w/o acute findings. * Neurologic exam wnl. CARDIAC/VASCULAR - * Sinus Pause/Sinus Arrest/Asystole/Syncope: * Presented to the ED s/p syncopal event. * Asystole w/ LOC while having carotid US performed. Initially presumed vagal event during carotid US. * >18 second sinus arrest captured on monitor while in room 234. CODE PURPLE called. * Patient w/ increasing pre-syncopal s/s with associated bradycardia/transient pauses. * Received Atropine 0.5 mg x2 w/o clinical benefit. * Dopamine gtt started. Will titrate up as needed per cardiology recommendations. * Transvenous pacer kit at bedside. * Lyme serology (IgM) noted to be positive. See ID * Cardiology presented to ICU to evaluate the pt at bedside. * EKG: Multiple EKGs demonstrate SR/SB w/ 1' AV block. QTc in the 400's. No other significant ST/T-wave changes. * Monitor on telemetry. RESPIRATORY - * No h/o pulmonary disease. * Saturating well on room air. GI/NUTRITION - * NPO pending need for possible pacer procedure. RENAL/LYTES - * No significant electrolyte derangements. * IVF: NSS@80mL/hr - * BPH w/ difficulty voiding. * Will consider Lorenzo placement if needed, but would ideally wish to avoid any procedures that might result in vagal event. ENDO - * No h/o DM or Thyroid Dz * BSGs per unit protocol. ISS --> gtt per unit policy. HEME - * Stable H&& ID - * Positive Lyme Serology: * Positive IgM. Western Blot pending. * Will start on Rocephin given current asystolic events and possible underlying carditis. * Pt w/o any known tick bites, exposures, rashes, or other "typical" symptomatology. LINES/IV ACCESS - * PIVs x2 DVT PROPHYLAXIS - * Hold pending likely need for transvenous/permanent pacer placement. * SCDs I have personally spent 40 minutes of critical care time in the direct management of this patient. This is a life/limb threatening event. This includes time spent evaluating patient, direct bedside care, chart review, placing orders, interpretation of diagnostic studies, discussion with consultants, patient, and family members, as well as other required patient management activities. This time is exclusive of all separately billable procedures, and teaching time and separate from and in addition to any other critical care service time. Thank you for allowing us to participate in the care of this patient. Please refer to my attending physician's documentation for any further recommendations. (2) Sinus arrest: (3) Symptomatic bradycardia: (4) Asystole: (5) Syncope: (6) Abrasion of face: (7) Positive Lyme disease serology: Supervising Physician Co-Signing Physician Notes I have personally evaluated and examined this patient. I agree with assessment and plan of Dulce Mcfadden PA-C. Bacitracin/local wound care to facial abrasions anticipate pacemaker placement with electrophysiology today. Remain n.p.o. until formal decision is made regarding procedural status. History of Present Illness Attending Physician: Edwina Ro MD History of Present Illness Patient is a 80-year-old male with a reported past medical history of BPH who presented to the emergency department last evening after a syncopal event at home. The patient reports that he was sitting at his desk when he began to feel dizzy and lightheaded. He states that he attempted to stand up, and the next thing he remembers is waking up on the floor. The patient presented to the emergency department where he underwent thorough evaluation including imaging studies of the head/brain which were found to be unremarkable. EKG demonstrated a sinus bradycardia with first-degree AV block. Troponin was negative. No other significant findings for laboratory results. Upon admission, the patient had carotid Dopplers ordered appropriately. The patient had a transient episode of asystole in the ultrasound suite during carotid Doppler. Rightfully so, this was presumed to be related to possible vagal event during carotid Doppler. Patient was taken back to the floor where he was monitored and had a concerning 18.5-second pause and was made a CODE PURPLE for the second time. Patient has had additional bradycardic episodes with presyncope symptoms as well as occasional brief sinus pauses. Hospitalist did speak with cardiology and the patient was provided atropine 0.5x1 dose with no real improvement in symptoms. Patient was transferred to the ICU and started on dopamine drip at 2.5 mcg/kg/min. Upon evaluation in the ICU, the patient is awake, alert, and oriented. He d enies any symptoms at this time, but reports that he does feel dizzy and lightheaded as though he is going to pass out when he becomes bradycardic. Currently, he denies any complaints of pain. Specifically, the patient denies any symptoms of headaches, blurry vision, double vision, chest pain, palpitations, pleuritic pain, nausea, vomiting, or abdominal discomfort. Patient lives in [place]. He denies any recent tick exposures, bites, or rashes. He states that his heart rate is typically in the 60s to 70s. On review of rhythm strips and conversation with head of academic technology, patient rapidly declines from heart rate in the 60s to a sinus bradycardia in the 30s with subsequent pauses. Allergies Allergy/AdvReac Type Severity Reaction Status Date / Time No Known Allergies Allergy Mild Verified 09/23/20 20:46 Home Medications Medication Instructions Recorded Confirmed Type acetaminophen [Tylenol Extra 1,000 mg PO QAM 09/23/20 09/23/20 History Strength] finasteride 5 mg PO DAILY 09/23/20 09/23/20 History glucosamine-chondroitin [Osteo 2 tab PO DAILY 09/23/20 09/23/20 History Bi-Flex] terazosin 10 mg PO HS 09/23/20 09/23/20 History Patient History Medical History BPH (benign prostatic hyperplasia) Social History Smoking Status: Never smoker Hx Alcohol Use: Yes Alcohol type: wine Hx Substance Use: No Preferred Language: Kinyarwanda Communication Ability: Effective Beliefs That Will Affect Care: None Current Living Situation: Alone Other Information That Helps Us Care for You: No Feels Safe at Home: Yes Assistive Devices: Glasses Review of Systems Review of Systems: A complete 10 point review of systems was reviewed with the patient with pertinent positives and negatives as per history of present illness. All else were negative. Physical Exam Physical Exam: VITAL SIGNS - Vital signs and nursing notes were reviewed. GENERAL - 80-year-old male appearing younger than his stated age who is in no acute distress. Communicates well with provider and answers questions appropriately. HEAD - NC/AT. EYES - PERRL with EOMI bilaterally. Sclera anicteric. EARS - No deformities of external structures noted on gross examination bilaterally. NOSE - Midline and without cyanosis. No epistaxis or purulent drainage noted. MOUTH/OROPHARYNX - Without perioral cyanosis. Buccal mucosa pink and moist and without leukoplakia. NECK - Neck with FROM. LUNGS - Chest wall symmetric without accessory muscle use, intercostals retractions, or central cyanosis. Normal vesicular breath sounds CTA B/L. No wheezes, rales, or rhonchi appreciated. CARDIAC - RRR with S1/S2. No murmur, rubs, or gallops appreciated. No reproducible tenderness to palpation appreciated over the anterior chest wall. ABDOMEN - Abdominal contour flat without pulsations or visible masses. BS normoactive all four quadrants. No tenderness, palpable masses, hepatosplenomegaly, or ascites noted. EXTREMITIES - No clubbing or peripheral cyanosis. No pretibial edema present. +3/5 radial and dorsalis pedis pulses palpated throughout. +5/5 strength noted in UE/LE bilaterally. NEUROLOGIC - Cranial nerves II through XII grossly intact. Sensory intact to light touch throughout. PSYCH - A&Ox3 and cooperates fully with examiner. Pt is very pleasant and interacts well with examiner. Results & Data Results & Data ([facility]) Vital Signs (Past 12 Hours) Vital Signs Temp Pulse Pulse Resp BP BP BP 09/24/20 03:34 159/76 H 09/24/20 03:30 36.8 C 46 L 18 129/52 L 09/24/20 01:42 20 150/69 H 09/24/20 01:36 30 L 09/24/20 00:00 66 09/23/20 23:52 36.5 C 78 20 147/70 H 09/23/20 23:12 58 L 143/74 H 09/23/20 23:00 71 18 141/72 H 09/23/20 22:30 60 23 09/23/20 22:00 60 14 09/23/20 21:30 65 13 09/23/20 21:00 63 26 H 138/71 09/23/20 20:54 62 17 09/23/20 20:26 60 16 143/74 H 09/23/20 20:21 67 23 143/74 H 09/23/20 18:10 36.8 C 65 19 141/75 H Pulse Ox 09/24/20 03:34 09/24/20 03:30 97 09/24/20 01:42 09/24/20 01:36 09/24/20 00:00 09/23/20 23:52 97 09/23/20 23:12 99 09/23/20 23:00 99 09/23/20 22:30 97 09/23/20 22:00 98 09/23/20 21:30 96 09/23/20 21:00 09/23/20 20:54 100 09/23/20 20:26 99 09/23/20 20:21 100 09/23/20 18:10 98 Coding Level of Care Code Critical Care 1st 30-74 mins Diagnoses Admitted to intensive care unit Z78.9 Sinus arrest I45.5 Symptomatic bradycardia R00.1 Asystole I46.9 Syncope R55 Syncope type: unspecified Abrasion of face S00.81XA Encounter type: initial encounter Positive Lyme disease serology R76.8 Time Spent (min) 40 (1) Syncope Syncope type: unspecified Qualified Code(s): R55 - Syncope and collapse (2) Abrasion of face Encounter type: initial encounter Qualified Code(s): S00.81XA - Abrasion of other part of head, initial encounter
[2020-09-24 04:41] LABS: Lyme Ab IgG w/WB Rflx Negative (Negative); Troponin I < 0.015 ng/ml (0-0.045)
[2020-09-24] MEDS ORDERED: ONDANSETRON INJ 2 MG/ML 2 ML VIAL IV PRN ×2 (04:55→11:50)
[2020-09-24 05:08] LABS: Lyme Ab IgM w/WB Rflx Positive (Negative)
[2020-09-24] MEDS: POTASSIUM CHLORIDE / WTR 10 MEQ/100 ML PLCT IV SCH ×4 (05:09→09:35)
[2020-09-24] MEDS: cefTRIAXone SODIUM 2,000 MG in DEXTROSE 5% 50 ML IV SCH (05:59)
--- NOTE | 2020-09-24 06:11 | Ultrasound Report ---
ULTRASOUND OF THE CAROTID ARTERIES CLINICAL HISTORY: Syncope COMPARISON STUDY: None. TECHNIQUE: Real-time, grayscale, and color Doppler sonography of the carotid arteries was performed. Imaging reviewed in the transverse and longitudinal planes. NASCET criteria was utilized for stenosis calcification. FINDINGS: The examination could not be completed. During the study the patient became asystolic on the monitor and coated. The right common carotid peak systolic velocity is 105 cm/s. The right external carotid peak systolic velocity was 66 cm/s. Minimal plaque was visualized. IMPRESSION: 1. Incomplete study as the patient coded during the examination 2. Normal right common carotid artery waveform with minimal plaque. ACT 112: Negative or not required by law. Electronically signed by: Radames Pantoja M.D. 09/24/2020 6:10 AM
--- NOTE | 2020-09-24 06:33 | Cardiology Consultation ---
Date of Consultation September 24, 2020 Assessment & Plan (1) Syncope: Patient is a 80-year-old male without prior cardiac history who presents after suffering an acute syncopal event at rest. Since admission has demonstrated episodes of sinus arrest and profound pauses mildly symptomatic. Longest pause 18 seconds. Rhythm appears to be predominantly sinus arrest rather than AV block. Patient received atropine for additional episodes of bradycardia with minimal response. Patient has been transferred to the intensive care unit external pacemaker pads in place. Low-dose dopamine infusion has been done with heart rates remaining in the 60s and 70s. No further pauses with cough or mild Valsalva. Lyme titer initially positive though no history of rash or exposure. Recommendations: We will review echo pending from this morning. Given current and past history suspect patient will ultimately require dual-chamber pacemaker. Keep n.p.o. this morning Agree with empiric treatment of potential Lyme exposure We will place EP consultation Addendum: Preliminary echocardiogram demonstrates normal LV systolic function without wall motion normality or significant valvular disease (2) Sinus arrest: History of Present Illness Reason for Consultation: Sinus pauses with syncope Requesting Physician: Dr. Ro Attending Physician: Edwina Ro MD History of Present Illness The patient is a 80-year-old male without prior history of cardiac disease with underlying medical issues as listed notable only for prostatic hypertrophy and chronic back pain. Patient presents now describing episode while sitting at a computer yesterday having sudden syncopal event brief in nature but resulting in fall with head contusion. On initial presentation EKG sinus bradycardia with first-degree AV block. Since admission he has manifested multiple sinus pauses with longest arrest of 18 seconds mildly symptomatic. External pacing pads are in place and patient has been begun on low-dose dopamine infusion. Patient mentating well answering questions appropriately currently. He notes prior episodes of syncope approximately 16 years ago last event question micturition related. No prior history of rheumatic fever scarlet fever TIA or stroke. No prior history of arrhythmias. No history of myocardial infarction, angina or congestive heart failure. No recent fevers chills or infections. No noted tick exposure or rash He has no bleeding difficulties. Appetite is generally good weight is slowly decreased approximately 10 pounds over the last 2 years. 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 [place] Allergies Allergy/AdvReac Type Severity Reaction Status Date / Time No Known Allergies Allergy Mild Verified 09/23/20 20:46 Home Medications Medication Instructions Recorded Confirmed Type acetaminophen [Tylenol Extra 1,000 mg PO QAM 09/23/20 09/23/20 History Strength] finasteride 5 mg PO DAILY 09/23/20 09/23/20 History glucosamine-chondroitin [Osteo 2 tab PO DAILY 09/23/20 09/23/20 History Bi-Flex] terazosin 10 mg PO HS 09/23/20 09/23/20 History Patient History Medical History BPH (benign prostatic hyperplasia) Social History Smoking Status: Never smoker Hx Alcohol Use: Yes Alcohol type: wine Hx Substance Use: No Preferred Language: Albanian Communication Ability: Effective Beliefs That Will Affect Care: None Current Living Situation: Alone Other Information That Helps Us Care for You: No Feels Safe at Home: Yes Assistive Devices: Glasses Review of Systems Review of Systems: All systems reviewed & are unremarkable except as noted in HPI & below Physical Exam Constitutional: WD/WN, vitals as above Eyes: PERRL, conjunctivae normal, anicteric sclerae ENMT: external ear and nose normal, oropharynx normal Neck: trachea midline, no thyromegaly Respiratory: normal respiratory effort, lungs clear to auscultation Cardiovascular: Rate/Rhythm: regular rate and regular rhythm Heart Sounds: normal S1 and normal S2; no gallop and no murmur Palpation: normal PMI Vessels: normal carotid upstroke and radial pulses present; no JVD and no carotid bruit Extremities: no edema Gastrointestinal (Abdomen): normal bowel sounds, soft, nontender, no hepatosplenomegaly Musculoskeletal: no cyanosis or clubbing, extremities motor strength 5/5 Contusion abrasion to the left orbit and temporal area Skin: no rashes, warm and dry Neurologic: PERRL, EOMI, accommodation nl, no face palsy, no dysarthria Psychiatric: A+Ox3, euthymic affect Results & Data ([facility]) Vital Signs (Past 12 Hours) Vital Signs Temp Pulse Pulse Resp BP BP BP 09/24/20 06:00 70 18 125/56 L 09/24/20 05:45 73 14 09/24/20 05:30 58 L 15 125/63 09/24/20 05:15 73 19 09/24/20 05:14 09/24/20 05:00 71 14 145/72 H 09/24/20 04:45 66 23 139/72 09/24/20 04:30 66 16 09/24/20 04:15 60 13 09/24/20 04:12 36.5 C 64 20 122/77 09/24/20 03:34 159/76 H 09/24/20 03:30 36.8 C 46 L 18 129/52 L 09/24/20 01:42 20 150/69 H 09/24/20 01:36 30 L 09/24/20 00:00 66 09/23/20 23:52 36.5 C 78 20 147/70 H 09/23/20 23:12 58 L 143/74 H 09/23/20 23:00 71 18 141/72 H 09/23/20 22:30 60 23 09/23/20 22:00 60 14 09/23/20 21:30 65 13 09/23/20 21:00 63 26 H 138/71 09/23/20 20:54 62 17 09/23/20 20:26 60 16 143/74 H 09/23/20 20:21 67 23 143/74 H Pulse Ox Pulse Ox 09/24/20 06:00 92 09/24/20 05:45 92 09/24/20 05:30 97 09/24/20 05:15 97 09/24/20 05:14 98 09/24/20 05:00 99 09/24/20 04:45 98 09/24/20 04:30 97 09/24/20 04:15 99 09/24/20 04:12 98 09/24/20 03:34 09/24/20 03:30 97 09/24/20 01:42 09/24/20 01:36 09/24/20 00:00 09/23/20 23:52 97 09/23/20 23:12 99 09/23/20 23:00 99 09/23/20 22:30 97 09/23/20 22:00 98 09/23/20 21:30 96 09/23/20 21:00 09/23/20 20:54 100 09/23/20 20:26 99 09/23/20 20:21 100 Laboratory Results Laboratory Results - last 24 hr 09/23/20 09/23/20 09/23/20 18:39 18:39 20:50 WBC 4.00 L RBC 4.49 L Hgb 14.2 Hct 42.1 MCV 93.8 MCH 31.6 MCHC 33.7 RDW Std Deviation 45.4 RDW Coeff of Cookie 13.3 Plt Count 182 MPV 10.1 Immature Gran % (Auto) 0.3 Neut % (Auto) 62.8 Lymph % (Auto) 25.3 [place] % (Auto) 7.3 Eos % (Auto) 3.8 Baso % (Auto) 0.5 Neut # (Auto) 2.52 Lymph # (Auto) 1.01 L [place] # (Auto) 0.29 Eos # (Auto) 0.15 Baso # (Auto) 0.02 Immature Gran # (Auto) 0.01 D-Dimer Sodium 139 Potassium 3.9 Chloride 108 H Carbon Dioxide 29 Anion Gap 2.0 L BUN 21 H Creatinine 1.28 Est Cr Clr Drug Dosing 60.5 Est GFR ( Amer) 61.3 Est GFR (Non-Af Amer) 52.9 BUN/Creatinine Ratio 16.7 Glucose 85 Calcium 8.5 Magnesium 2.0 Total Bilirubin 0.4 AST 18 ALT 18 Alkaline Phosphatase 61 Troponin I < 0.015 Total Protein 6.7 Albumin 3.4 Globulin 3.3 Albumin/Globulin Ratio 1.0 TSH 4.250 Urine Color Urine Appearance Urine pH Ur Specific [place] Urine Protein Urine Glucose (UA) Urine Ketones Urine Blood Urine Nitrite Urine Bilirubin Urine Urobilinogen Ur Leukocyte Esterase Lyme Disease IgG Ab Lyme IgG (Western Blot) Lyme IgG 18 kDa Band Lyme IgG 23 kDa Band Lyme IgG 28 kDa Band Lyme IgG 30 kDa Band Lyme IgG 39 kDa Band Lyme IgG 41 kDa Band Lyme IgG 45 kDa Band Lyme IgG 58 kDa Band Lyme IgG 66 kDa Band Lyme IgG 93 kDa Band Lyme IgM Ab (WB) Lyme Disease IgM Ab Lyme IgM 23 kDa Band Lyme IgM 39 kDa Band Lyme IgM 41 kDa Band COVID-19 Eval Order Covid19 at [facility] SARS-CoV-2 (PCR) 09/23/20 09/23/20 09/24/20 20:50 23:07 03:39 WBC RBC Hgb Hct MCV MCH MCHC RDW Std Deviation RDW Coeff of Cookie Plt Count MPV Immature Gran % (Auto) Neut % (Auto) Lymph % (Auto) [place] % (Auto) Eos % (Auto) Baso % (Auto) Neut # (Auto) Lymph # (Auto) [place] # (Auto) Eos # (Auto) Baso # (Auto) Immature Gran # (Auto) D-Dimer 1130 H* Sodium Potassium Chloride Carbon Dioxide Anion Gap BUN Creatinine Est Cr Clr Drug Dosing Est GFR ( Amer) Est GFR (Non-Af Amer) BUN/Creatinine Ratio Glucose Calcium Magnesium Total Bilirubin AST ALT Alkaline Phosphatase Troponin I Total Protein Albumin Globulin Albumin/Globulin Ratio TSH Urine Color Yellow Urine Appearance Clear Urine pH 7.5 Ur Specific [place] 1.016 Urine Protein Negative Urine Glucose (UA) Negative Urine Ketones Negative Urine Blood Negative Urine Nitrite Negative Urine Bilirubin Negative Urine Urobilinogen Negative Ur Leukocyte Esterase Negative Lyme Disease IgG Ab Lyme IgG (Western Blot) Lyme IgG 18 kDa Band Lyme IgG 23 kDa Band Lyme IgG 28 kDa Band Lyme IgG 30 kDa Band Lyme IgG 39 kDa Band Lyme IgG 41 kDa Band Lyme IgG 45 kDa Band Lyme IgG 58 kDa Band Lyme IgG 66 kDa Band Lyme IgG 93 kDa Band Lyme IgM Ab (WB) Lyme Disease IgM Ab Lyme IgM 23 kDa Band Lyme IgM 39 kDa Band Lyme IgM 41 kDa Band COVID-19 Eval Order SARS-CoV-2 (PCR) NEGATIVE 09/24/20 09/24/20 09/24/20 03:39 03:39 03:39 WBC 5.12 RBC 4.46 L Hgb 14.2 Hct 41.3 L MCV 92.6 MCH 31.8 MCHC 34.4 RDW Std Deviation 44.7 RDW Coeff of Cookie 13.1 Plt Count 174 MPV 10.0 Immature Gran % (Auto) 0.2 Neut % (Auto) 69.2 Lymph % (Auto) 20.1 [place] % (Auto) 7.8 Eos % (Auto) 2.3 Baso % (Auto) 0.4 Neut # (Auto) 3.54 Lymph # (Auto) 1.03 L [place] # (Auto) 0.40 Eos # (Auto) 0.12 Baso # (Auto) 0.02 Immature Gran # (Auto) 0.01 D-Dimer Sodium 140 Potassium 3.6 Chloride 109 H Carbon Dioxide 28 Anion Gap 3.0 BUN 18 Creatinine 0.97 D Est Cr Clr Drug Dosing 79.8 Est GFR ( Amer) 85.7 Est GFR (Non-Af Amer) 73.9 BUN/Creatinine Ratio 18.6 Glucose 97 Calcium 8.3 L Magnesium 2.0 Total Bilirubin AST ALT Alkaline Phosphatase Troponin I < 0.015 Total Protein Albumin Globulin Albumin/Globulin Ratio TSH Urine Color Urine Appearance Urine pH Ur Specific [place] Urine Protein Urine Glucose (UA) Urine Ketones Urine Blood Urine Nitrite Urine Bilirubin Urine Urobilinogen Ur Leukocyte Esterase Lyme Disease IgG Ab Negative Lyme IgG (Western Blot) Lyme IgG 18 kDa Band Lyme IgG 23 kDa Band Lyme IgG 28 kDa Band Lyme IgG 30 kDa Band Lyme IgG 39 kDa Band Lyme IgG 41 kDa Band Lyme IgG 45 kDa Band Lyme IgG 58 kDa Band Lyme IgG 66 kDa Band Lyme IgG 93 kDa Band Lyme IgM Ab (WB) Lyme Disease IgM Ab Positive A Lyme IgM 23 kDa Band Lyme IgM 39 kDa Band Lyme IgM 41 kDa Band COVID-19 Eval Order SARS-CoV-2 (PCR) 09/24/20 03:39 WBC RBC Hgb Hct MCV MCH MCHC RDW Std Deviation RDW Coeff of Cookie Plt Count MPV Immature Gran % (Auto) Neut % (Auto) Lymph % (Auto) [place] % (Auto) Eos % (Auto) Baso % (Auto) Neut # (Auto) Lymph # (Auto) [place] # (Auto) Eos # (Auto) Baso # (Auto) Immature Gran # (Auto) D-Dimer Sodium Potassium Chloride Carbon Dioxide Anion Gap BUN Creatinine Est Cr Clr Drug Dosing Est GFR ( Amer) Est GFR (Non-Af Amer) BUN/Creatinine Ratio Glucose Calcium Magnesium Total Bilirubin AST ALT Alkaline Phosphatase Troponin I Total Protein Albumin Globulin Albumin/Globulin Ratio TSH Urine Color Urine Appearance Urine pH Ur Specific [place] Urine Protein Urine Glucose (UA) Urine Ketones Urine Blood Urine Nitrite Urine Bilirubin Urine Urobilinogen Ur Leukocyte Esterase Lyme Disease IgG Ab Lyme IgG (Western Blot) Pending Lyme IgG 18 kDa Band Pending Lyme IgG 23 kDa Band Pending Lyme IgG 28 kDa Band Pending Lyme IgG 30 kDa Band Pending Lyme IgG 39 kDa Band Pending Lyme IgG 41 kDa Band Pending Lyme IgG 45 kDa Band Pending Lyme IgG 58 kDa Band Pending Lyme IgG 66 kDa Band Pending Lyme IgG 93 kDa Band Pending Lyme IgM Ab (WB) Pending Lyme Disease IgM Ab Lyme IgM 23 kDa Band Pending Lyme IgM 39 kDa Band Pending Lyme IgM 41 kDa Band Pending COVID-19 Eval Order SARS-CoV-2 (PCR) ECG Additional Comments: 04-SEP-2020 05:00:23 [facility]-SICU ROUTINE RETRIEVAL Sinus rhythm with sinus arrhythmia with 1st degree A-V block Left axis deviation Nonspecific ST abnormality Abnormal ECG When compared with ECG of 24-SEP-2020 03:51, (unconfirmed) No significant change was found (1) Syncope Syncope type: unspecified Qualified Code(s): R55 - Syncope and collapse
[2020-09-24] MEDS ORDERED: NON-FORMULARY MEDICATION (Glucosamine-Chondroitin [Osteo Bi-Flex] 250-200 mg Tablet) PO SCH (09:00)
--- NOTE | 2020-09-24 09:02 | Cardiology Consultation ---
Date of Consultation September 24, 2020 Assessment & Plan (1) Syncope: He has had syncopal episodes for a number of years, they are widely spaced and on this occasion it seems most likely that it was due to sinus arrest although we cannot prove that. (2) Sinus node dysfunction: He clearly has sinus node dysfunction with periods of sinus slowing and periods of sinus arrest here in the hospital which he does not feel to a great extent. He probably has these at home and only occasionally loses consciousness. There may be a component of carotid sinus hypersensitivity based on his carotid study, I did do carotid sinus massage and he slowed down appr opriately but did not have asystole so that may or may not be a factor. (3) Positive Lyme disease serology: He did have a positive IgM on his Lyme screen, his IgG was negative. This may be a false positive or could be indicative of prior infection although he really does not have exposure. It was sent out for confirmatory testing. I would treat him forward if confirmed, however that is very unlikely to explain his current findings. History of Present Illness Reason for Consultation: Sinus arrest Attending Physician: Edwina Ro MD History of Present Illness This is a 80-year-old active male who has had several syncopal episodes over a long period of time. The last episode was 16 years ago, he then had a sudden episode while sitting at his computer resulting in injury to his head. He came to the emergency room was noted to be in sinus bradycardia with first-degree AV block, however he then developed multiple episodes of sinus arrest while on the monitor. Laboratory studies are unrevealing except for an elevated D-dimer and a positive Lyme IgM with IgG pending. He did have a negative head CT scan. He also had a carotid study done, interestingly during the study he became asystolic and the study was abbreviated. He has felt a little funny several times here in the hospital and has had periods of extreme bradycardia and sinus arrest. After an episode at 4 AM this morning he was started on dopamine and is had no further episodes. This morning he is feeling well, he does have some abrasions on his head that are not causing him much discomfort. He has no chest discomfort, lightheadedness or dizziness currently. He has not had any recent exertional symptoms. Allergies Allergy/AdvReac Type Severity Reaction Status Date / Time No Known Allergies Allergy Mild Verified 09/23/20 20:46 Home Medications Medication Instructions Recorded Confirmed Type acetaminophen [Tylenol Extra 1,000 mg PO QAM 09/23/20 09/23/20 History Strength] finasteride 5 mg PO DAILY 09/23/20 09/23/20 History glucosamine-chondroitin [Osteo 2 tab PO DAILY 09/23/20 09/23/20 History Bi-Flex] terazosin 10 mg PO HS 09/23/20 09/23/20 History Patient History Medical History BPH (benign prostatic hyperplasia) Social History Smoking Status: Never smoker Hx Alcohol Use: Yes Alcohol type: wine Hx Substance Use: No Preferred Language: Luxembourgish Communication Ability: Effective Beliefs That Will Affect Care: None Current Living Situation: Alone Other Information That Helps Us Care for You: No Feels Safe at Home: Yes Assistive Devices: Glasses Review of Systems Review of Systems: A review of systems was performed, pertinent positives are noted in the HPI, otherwise he does have a tremor which has been present for years and apparently has been in his parents as well. Physical Exam Physical Exam: Constitutional: Alert, cooperative and in no distress. HEENT: Unremarkable Neck: No jugular venous distention, carotid pulses are normal and equal bilaterally without bruits. Pulmonary: Clear to auscultation bilaterally. Cardiac: Regular rhythm with no murmur, gallop or rub. Abdomen: Soft, nontender with normal bowel sounds. Extremities: No edema. Distal pulses intact. Neurologic: No focal findings. Gait is steady. Skin: No rash, ecchymoses or petechiae. Results & Data ([facility]) Vital Signs (Past 12 Hours) Vital Signs Temp Pulse Pulse Resp BP BP BP 09/24/20 07:36 66 09/24/20 07:31 69 14 129/66 09/24/20 07:30 89 22 09/24/20 07:15 63 17 09/24/20 07:01 76 15 111/55 L 09/24/20 07:00 84 24 09/24/20 06:45 63 18 09/24/20 06:30 69 23 120/58 L 09/24/20 06:15 71 16 09/24/20 06:00 70 18 125/56 L 09/24/20 05:45 73 14 09/24/20 05:30 58 L 15 125/63 09/24/20 05:15 73 19 09/24/20 05:14 09/24/20 05:00 71 14 145/72 H 09/24/20 04:45 66 23 139/72 09/24/20 04:30 66 16 09/24/20 04:15 60 13 09/24/20 04:12 36.5 C 64 20 122/77 09/24/20 03:34 159/76 H 09/24/20 03:30 36.8 C 46 L 18 129/52 L 09/24/20 01:42 20 150/69 H 09/24/20 01:36 30 L 09/24/20 00:00 66 09/23/20 23:52 36.5 C 78 20 147/70 H 09/23/20 23:12 58 L 143/74 H 09/23/20 23:00 71 18 141/72 H 09/23/20 22:30 60 23 09/23/20 22:00 60 14 09/23/20 21:30 65 13 09/23/20 21:00 63 26 H 138/71 Pulse Ox Pulse Ox 09/24/20 07:36 09/24/20 07:31 97 09/24/20 07:30 94 09/24/20 07:15 96 09/24/20 07:01 93 09/24/20 07:00 92 09/24/20 06:45 99 09/24/20 06:30 98 09/24/20 06:15 91 09/24/20 06:00 92 09/24/20 05:45 92 09/24/20 05:30 97 09/24/20 05:15 97 09/24/20 05:14 98 09/24/20 05:00 99 09/24/20 04:45 98 09/24/20 04:30 97 09/24/20 04:15 99 09/24/20 04:12 98 09/24/20 03:34 09/24/20 03:30 97 09/24/20 01:42 09/24/20 01:36 09/24/20 00:00 09/23/20 23:52 97 09/23/20 23:12 99 09/23/20 23:00 99 09/23/20 22:30 97 09/23/20 22:00 98 09/23/20 21:30 96 09/23/20 21:00 Laboratory Results Cardiac Enzymes 09/23/20 09/24/20 09/24/20 Range/Units 18:39 03:39 09:22 AST 18 (15-37) U/L Troponin I < 0.015 < 0.015 < 0.015 (0-0.045) ng/ml CBC 09/23/20 09/24/20 Range/Units 18:39 03:39 WBC 4.00 L 5.12 (4.8-10.8) K/uL RBC 4.49 L 4.46 L (4.7-6.1) M/uL Hgb 14.2 14.2 (14.0-18.0) g/dL Hct 42.1 41.3 L (42-52) % Plt Count 182 174 (130-400) K/uL Neut # (Auto) 2.52 3.54 (1.4-6.5) K/uL Lymph # (Auto) 1.01 L 1.03 L (1.2-3.4) K/uL Otero # (Auto) 0.29 0.40 (0.11-0.59) K/uL Eos # (Auto) 0.15 0.12 (0-0.5) K/uL Baso # (Auto) 0.02 0.02 (0-0.2) K/uL Comprehensive Metabolic Panel 09/23/20 09/24/20 Range/Units 18:39 03:39 Sodium 139 140 (136-145) mmol/L Potassium 3.9 3.6 (3.5-5.1) mmol/L Chloride 108 H 109 H (98-107) mmol/L Carbon Dioxide 29 28 (21-32) mmol/L BUN 21 H 18 (7-18) mg/dl Creatinine 1.28 0.97 D (0.6-1.4) mg/dl Glucose 85 97 (70-99) mg/dl Calcium 8.5 8.3 L (8.5-10.1) mg/dl AST 18 (15-37) U/L ALT 18 (12-78) U/L Alkaline Phosphatase 61 (45-117) U/L Total Protein 6.7 (6.4-8.2) gm/dl Albumin 3.4 (3.4-5.0) gm/dl Intake and Output 09/23/20 09/24/20 09/24/20 22:59 06:59 14:59 Intake Total 500 / 794.840 294.840 / 794.840 100 / 100 Output Total 400 / 400 950 / 950 Balance 500 / 394.840 -105.160 / 394.840 -850 / -850 Intake: IV 500 / 794.840 294.840 / 794.840 100 / 100 DOPamine / D5W 400 mg In 250 ml 41.507 / 41.507 @ 5 MCG/KG/MIN 17.55 mls/hr IV .[id number] [facility] Rx#:[id number] Potassium Chloride / Wtr 10 meq 183.333 / 183.333 100 / 100 In 100 ml @ 100 mls/hr IV Q1H [facility] Rx#:[id number] Sodium Chloride 0.9% 1000ML 500 500 / 500 ml @ 999 mls/hr IV .Q31M [facility] Rx#:[id number] cefTRIAXone SODIUM 2,000 mg In 70 / 70 Dextrose 5% 50 ml @ 100 mls/hr IV Q24H [facility] Rx#:[id number] Oral 0 / 0 Output: Urine 400 / 400 950 / 950 # Bowel Movements 0 / 0 Other: Weight 93.6 kg 89.1 kg 89.1 kg Weight Measurement Method Chair Scale Built in [facility] Patient Weight 09/25/20 06:59 Weight 89.1 kg Diagnostic Findings Telemetry was reviewed, he is in sinus rhythm at sinus bradycardia with periods of sinus arrest, 3 notable episodes documented on telemetry which probably does not include the one that occurred during his carotid study. PG Care Time/CCT Total # of Minutes Spent Total Time Spent with Patient: Total time spent is greater than 50% in coordination of care (as documented) at patient's floor/unit and/or counseling patient: Coding Level of Care Code 29158 Initial Inpt Care Lvl 3 Diagnoses Syncope R55 Syncope type: unspecified Sinus node dysfunction I49.5 Positive Lyme disease serology R76.8 (1) Syncope Syncope type: unspecified Qualified Code(s): R55 - Syncope and collapse
[2020-09-24] MEDS ORDERED: BACITRACIN OINT 15 GM TUBE ONE (09:16)
[2020-09-24] MEDS ORDERED: LIDOCAINE 1% LOCAL 20 ML VIAL ONE (09:16)
--- NOTE | 2020-09-24 09:59 | Anesthesiology Consultation ---
Date of Service September 24, 2020 Assessment & Plan (1) Encounter for pre-operative examination: Chart Review Chart Review: continuous improvement intern initiated History Surgery Operation Date: 09/24/20 12:00 Proposed Procedures p Pacemaker Insertion - Rocco Villanueva MD Height/Weight Height: 6 ft 6 in Weight: 89.1 kg Allergies Allergy/AdvReac Type Severity Reaction Status Date / Time No Known Allergies Allergy Mild Verified 09/23/20 20:46 Medications Home Medications Medication Instructions Recorded Confirmed Last Taken acetaminophen [Tylenol Extra 1,000 mg PO QAM 09/23/20 09/23/20 09/23/20 Strength] finasteride 5 mg PO DAILY 09/23/20 09/23/20 09/23/20 glucosamine-chondroitin [Osteo 2 tab PO DAILY 09/23/20 09/23/20 09/23/20 Bi-Flex] terazosin 10 mg PO HS 09/23/20 09/23/20 09/22/20 Active Medications Generic Name Dose Route Start Last Admin Trade Name Freq PRN Reason Stop Dose Admin Atropine Sulfate 0.5 mg 09/24/20 01:57 09/24/20 04:01 Atropine Sulfate 0.1 Mg/Ml 10ml Syr IV 10/24/20 01:46 0.5 mg Q5M PRN Administration Bradycardia for HR < 35 Sodium Chloride 1,000 mls @ 80 mls/hr 09/23/20 23:59 09/24/20 00:41 Nss 1000ml IV 10/23/20 23:58 80 mls/hr .[id number] LAKE Administration Dopamine HCl/Dextrose 400 mg in 250 mls @ 17.55 mls/hr 09/24/20 04:15 09/24/20 06:54 Dopamine / D5w IV 10/24/20 04:14 5 mcg/kg/min .[id number] LAKE 17.6 mls/hr Titration Protocol 5 MCG/KG/MIN Ceftriaxone Sodium 2,000 mg/ 70 mls @ 100 mls/hr 09/24/20 06:00 09/24/20 06:39 Dextrose IV 10/08/20 05:59 Infused Q24H LAKE Infusion Protocol Past Medical History Medical History (Updated 09/24/20 @ 09:59 by Yannick Lawrence DO) BPH (benign prostatic hyperplasia) Symptomatic bradycardia Social History Smoking Status: Never smoker Hx Alcohol Use: Yes Alcohol type: wine alcohol intake frequency: 0-2 drinks per day Hx Substance Use: No Physical Exam Vital Signs Last Vital Signs Temp 97.7 F 09/24/20 04:12 Pulse 66 09/24/20 07:36 Resp 14 09/24/20 07:31 BP 129/66 09/24/20 07:31 Pulse Ox 97 09/24/20 07:31 Testing Laboratory Results 09/24/20 03:39 09/24/20 03:39 Urine Color Yellow 09/23/20 23:07 Urine Appearance Clear (Clear) 09/23/20 23:07 Urine pH 7.5 (4.5-7.5) 09/23/20 23:07 Ur Specific [place] 1.016 (1.000-1.030) 09/23/20 23:07 Urine Protein Negative (Negative) 09/23/20 23:07 Urine Glucose (UA) Negative (Negative) 09/23/20 23:07 Urine Ketones Negative (Negative) 09/23/20 23:07 Urine Nitrite Negative (Negative) 09/23/20 23:07 Ur Leukocyte Esterase Negative (Negative) 09/23/20 23:07 Electrocardiogram Date: 09/24/20 Sinus rhythm with sinus arrhythmia with 1st degree A-V block, rate 72 bpm Left axis deviation Nonspecific ST abnormality Abnormal ECG When compared with ECG of 24-SEP-2020 03:51, (unconfirmed) No significant change was found Chest X-Ray Date: 09/23/20 Findings: + NAD Echocardiogram Date: 09/24/20 LV is normal in size Mild concentric LVH LV wall motion is normal EF 60-65% There is no significant valvular disease Doppler findings do not suggest pulmonary hypertension
[2020-09-24] MEDS ORDERED: LIDOCAINE 2% 2 ML VIAL/AMP(20MG/ML) INFIL ONE (11:17)
[2020-09-24] MEDS ORDERED: PROPOFOL IV EMULSION 10 MG/ML 20 ML VIAL IV ONE (11:17)
[2020-09-24] MEDS ORDERED: fentaNYL citrate 100 MCG/2 ML VIAL ONE (11:18)
[2020-09-24] MEDS ORDERED: VANCOMYCIN HCL 1000MG/20ML VIAL ONE (11:38)
[2020-09-24] MEDS ORDERED: SODIUM CHLORIDE 0.9% PF 50 ML VIAL ONE (11:38)
[2020-09-24] MEDS ORDERED: fentaNYL citrate 100 MCG/2 ML VIAL IV PRN (11:50)
[2020-09-24] MEDS ORDERED: ePHEDrine sulfate 50 MG/ML AMP IV PRN (11:50)
[2020-09-24] MEDS ORDERED: VISIPAQUE IV PRN (12:33)
[2020-09-24] MEDS: FINASTERIDE 5 MG TAB PO SCH (13:13)
[2020-09-24] MEDS: ACETAMINOPHEN 500 MG TAB PO SCH (13:13)
[2020-09-24] MEDS ORDERED: ACETAMINOPHEN W/CODEINE #3 1 TAB PO PRN (13:14)
[2020-09-24] MEDS ORDERED: ACETAMINOPHEN 325 MG TAB PO PRN (13:14)
--- NOTE | 2020-09-24 13:17 | Fluoroscopy Report ---
FL pacemaker insert (NO CHARGE) CLINICAL HISTORY: LEFT PACEMAKER INSERTION COMPARISON STUDY: No previous studies for comparison. FINDINGS: 4 minutes and 20 seconds of fluoroscopic time was utilized. No images were acquired. IMPRESSION: No images were acquired. ACT 112: Negative or not required by law. Electronically signed by: Radames Pantoja M.D. 09/24/2020 1:16 PM
--- NOTE | 2020-09-24 13:19 | Electrophysiology Report ---
Date of Service September 24, 2020 Electrophysiology Procedure Electrophysiology Procedure Report Preoperative diagnosis: Postoperative diagnosis: Same Procedure: Left subclavian venogram Dual-chamber pacemaker implantation Surgeon: Rocco Villanueva MD Estimated blood loss: 20 cc Complications: None Disposition: Leadership Development Manager recovery Procedure details: After obtaining informed consent for the procedure, the patient was brought to the laboratory and prepped and draped in the standard sterile manner. Dye was injected the left arm IV site to opacify the left subclavian vein. The subclavian vein was identified and found to be free of obstruction. The left prepectoral region was anesthetized with 1% lidocaine local anesthetic and left axillary venipuncture was performed by percutaneous technique and a guidewire placed through the left subclavian vein into the superior vena cava. The area was further infiltrated with 1% lidocaine local anesthetic and a 5 cm incision was made parallel to the left clavicle and 2 cm below it and carried down to the anterior pectoralis fascia. A pacemaker pocket was formed by blunt dissection anterior to the pectoralis fascia and a vancomycin-soaked sponge was placed in the pocket. An 8 Tajik Medtronic lead introducer was placed over the guidewire into the left subclavian vein, the dilator and guidewire were removed and a bipolar active fixation steroid tipped ventricular lead was advanced through the introducer into the superior vena cava. A guidewire was placed through the introducer and the introducer was stripped from the lead and guidewire. Another 8 [place] Medtronic lead introducer was placed over the guidewire into the left subclavian vein, the dilator and guidewire were removed and a bipolar active fixation steroid tipped atrial lead was advanced through the introducer into the superior vena cava. A guidewire was placed back through the introducer and the introducer was stripped from the lead and guidewire. Using a curved stylette the ventricular lead was advanced through the right ventricular outflow tract into the pulmonary artery and then using a straight stylette was positioned in the right ventricular apex. The screw was extended fixing the lead in position. Pacing and sensing thresholds were evaluated in bipolar configuration and are recorded on the implant data sheet. Using a curved stylette the atrial lead was positioned in the region of the atrial appendage and the screw extended fixing the lead in position. Pacing and sensing thresholds were evaluated in bipolar configuration and are recorded on the implant data sheet. Once the leads were in position they were attached to the anterior pectoralis fascia using 2 sutures of 2-0 silk around each lead collar. The vancomycin- soaked sponge was removed from the pocket, hemostasis was obtained, the pacemaker was attached to the leads and placed in the pocket with the leads coiled beneath it. The incision was closed with a running double subcutaneous closure of 3-0 Vicryl absorbable suture, followed by running subcuticular skin closure of 4-0 Vicryl absorbable suture. Bacitracin ointment was placed on the incision and a dressing applied. [facility] Electrophysiology codes Pacing Procedure 1: Pacin Insert/Replace Pacer A & V Miscellaneous Procedures Procedure 1: EP Miscellaneous: 79245 Contrast injection for venography Procedure 2: EP Miscellaneous: 11042-56 Vengraphy, extremity
--- NOTE | 2020-09-24 13:41 | Anesthesiology Progress Note ---
Date of Service September 24, 2020 Anesthesia Post Procedure Vital Signs Vital Signs: Temp Pulse Pulse Resp BP BP BP 09/24/20 13:32 74 26 H 126/70 09/24/20 13:31 80 22 90/70 L 09/24/20 13:30 69 15 09/24/20 13:25 61 13 116/70 09/24/20 13:20 64 13 125/65 09/24/20 11:39 73 21 109/88 09/24/20 11:30 59 L 16 09/24/20 11:15 62 20 09/24/20 11:01 56 L 10 L 09/24/20 11:00 56 L 6 L 115/64 09/24/20 10:45 65 13 09/24/20 10:31 58 L 12 09/24/20 10:30 64 15 112/64 09/24/20 10:15 62 11 L 09/24/20 10:00 76 23 09/24/20 09:45 64 27 H 09/24/20 09:31 57 L 16 09/24/20 09:30 57 L 20 118/60 09/24/20 09:15 55 L 7 L 09/24/20 09:01 54 L 9 L 09/24/20 09:00 58 L 9 L 104/52 L 09/24/20 08:45 62 13 09/24/20 08:31 56 L 8 L 09/24/20 08:30 59 L 10 L 112/55 L 09/24/20 08:15 69 15 09/24/20 08:01 60 11 L 09/24/20 08:00 58 L 11 L 112/57 L 09/24/20 07:45 60 16 09/24/20 07:36 66 09/24/20 07:31 69 14 129/66 09/24/20 07:30 89 22 09/24/20 07:15 63 17 09/24/20 07:01 76 15 111/55 L 09/24/20 07:00 84 24 09/24/20 06:45 63 18 09/24/20 06:30 69 23 120/58 L 09/24/20 06:15 71 16 09/24/20 06:00 70 18 125/56 L 09/24/20 05:45 73 14 09/24/20 05:30 58 L 15 125/63 09/24/20 05:15 73 19 09/24/20 05:14 09/24/20 05:00 71 14 145/72 H 09/24/20 04:45 66 23 139/72 09/24/20 04:30 66 16 09/24/20 04:15 60 13 09/24/20 04:12 97.7 F 64 20 122/77 09/24/20 03:34 159/76 H 09/24/20 03:30 98.2 F 46 L 18 129/52 L 09/24/20 01:42 20 150/69 H 09/24/20 01:36 30 L 09/24/20 00:00 66 09/23/20 23:52 97.7 F 78 20 147/70 H 09/23/20 23:12 58 L 143/74 H 09/23/20 23:00 71 18 141/72 H 09/23/20 22:30 60 23 09/23/20 22:00 60 14 09/23/20 21:30 65 13 09/23/20 21:00 63 26 H 138/71 09/23/20 20:54 62 17 09/23/20 20:26 60 16 143/74 H 09/23/20 20:21 67 23 143/74 H 09/23/20 18:10 98.2 F 65 19 141/75 H Pulse Ox Pulse Ox 09/24/20 13:32 97 09/24/20 13:31 97 09/24/20 13:30 98 09/24/20 13:25 97 09/24/20 13:20 98 09/24/20 11:39 97 09/24/20 11:30 95 09/24/20 11:15 99 09/24/20 11:01 98 09/24/20 11:00 98 09/24/20 10:45 98 09/24/20 10:31 96 09/24/20 10:30 97 09/24/20 10:15 98 09/24/20 10:00 92 09/24/20 09:45 98 09/24/20 09:31 95 09/24/20 09:30 92 09/24/20 09:15 96 09/24/20 09:01 96 09/24/20 09:00 97 09/24/20 08:45 95 09/24/20 08:31 95 09/24/20 08:30 94 09/24/20 08:15 98 09/24/20 08:01 98 09/24/20 08:00 95 09/24/20 07:45 92 09/24/20 07:36 09/24/20 07:31 97 09/24/20 07:30 94 09/24/20 07:15 96 09/24/20 07:01 93 09/24/20 07:00 92 09/24/20 06:45 99 09/24/20 06:30 98 09/24/20 06:15 91 09/24/20 06:00 92 09/24/20 05:45 92 09/24/20 05:30 97 09/24/20 05:15 97 09/24/20 05:14 98 09/24/20 05:00 99 09/24/20 04:45 98 09/24/20 04:30 97 09/24/20 04:15 99 09/24/20 04:12 98 09/24/20 03:34 09/24/20 03:30 97 09/24/20 01:42 09/24/20 01:36 09/24/20 00:00 09/23/20 23:52 97 09/23/20 23:12 99 09/23/20 23:00 99 09/23/20 22:30 97 09/23/20 22:00 98 09/23/20 21:30 96 09/23/20 21:00 09/23/20 20:54 100 09/23/20 20:26 99 09/23/20 20:21 100 09/23/20 18:10 98 Transfer of Care Handoff Completed per policy Notes Mental Status: alert / awake / arousable and participated in evaluation Patient Amnestic to Procedure: Yes Nausea / Vomiting: adequately controlled Pain: adequately controlled Airway Patency, RR, SpO2: stable & adequate BP & HR: stable & adequate Hydration State: stable & adequate Anesthetic Complications: no major complications apparent and Pt Satisfied with anesthetic care
--- NOTE | 2020-09-24 15:06 | Hospitalist Progress Note ---
Date of Service September 24, 2020 Assessment & Plan (1) Symptomatic bradycardia: presented with syncope and fall ( similar episodes in past ) noted episodes of bradycardia and sinus pause appreciate input from Cardiology s/p permanent pacemaker placement today pt tolerated procedure well hemodynamically stable transferred out of ICU (2) Sinus node dysfunction: (3) Positive Lyme disease serology: IgM positive -suggestive of past exposure , western blot confirmatory test ordered will follow cont on IV rocephin now Full code disposition : expected to be discharged to home when medically stable Admission and Anticipated Discharge Date Admission Date: September 24, 2020 Subjective follow up visit for syncope/fall /symptomatic bradycardia : seen after pacemaker placement feels well , no complain of dizzy spell or lightheadedness , no chest pain or cough stable vitals Review of Systems Review of Systems: All systems reviewed & are unremarkable except as noted in Subjective Physical Exam Physical Exam: Physical exam: General: No acute distress, alert awake oriented x3 HEENT: open skin wound on forehead from recent fall Heart: Regular S1-S2, no carotid bruit, no JVD, no lower extremity edema Lungs: Clear to auscultate, no wheeze or rales Abdomen: Soft nontender, no organomegaly Extremity:left upper chest wall pacemaker placement site bandaged, no surrounding swelling or hematoma , no drainage Neuro: No focal neurological deficit normal speech, normal visual field, Motor strength : normal both upper and lower extremity, sensation intact Psych: Alert awake oriented x3, normal affect Results & Data Results & Data ([facility]) Vital Signs (Past 12 Hours) Vital Signs Temp Pulse Pulse Resp BP BP Pulse Ox 09/24/20 14:50 65 14 116/66 98 09/24/20 14:46 63 20 97 09/24/20 14:45 64 23 125/68 96 09/24/20 14:40 65 20 118/66 98 09/24/20 14:35 65 22 119/63 98 09/24/20 14:30 64 22 122/62 97 09/24/20 14:25 61 21 110/71 93 09/24/20 14:20 64 16 109/64 96 09/24/20 14:15 71 18 122/70 98 09/24/20 14:10 67 21 130/70 96 09/24/20 14:05 64 20 119/69 97 09/24/20 14:00 76 19 97 09/24/20 13:55 67 19 114/70 94 09/24/20 13:45 68 16 120/76 96 09/24/20 13:40 36.7 C 64 66 13 128/67 128/67 97 09/24/20 13:36 67 20 126/70 98 09/24/20 13:32 74 26 H 126/70 97 09/24/20 13:31 80 22 90/70 L 97 09/24/20 13:30 36.7 C 69 62 19 116/70 97 09/24/20 13:25 61 13 116/70 97 09/24/20 13:20 36.7 C 64 69 13 125/65 125/65 98 09/24/20 11:39 73 21 109/88 97 09/24/20 11:30 59 L 16 95 09/24/20 11:15 62 20 99 09/24/20 11:01 56 L 10 L 98 09/24/20 11:00 56 L 6 L 115/64 98 09/24/20 10:45 65 13 98 09/24/20 10:31 58 L 12 96 09/24/20 10:30 64 15 112/64 97 09/24/20 10:15 62 11 L 98 09/24/20 10:00 76 23 92 09/24/20 09:45 64 27 H 98 09/24/20 09:31 57 L 16 95 09/24/20 09:30 57 L 20 118/60 92 09/24/20 09:15 55 L 7 L 96 09/24/20 09:01 54 L 9 L 96 09/24/20 09:00 58 L 9 L 104/52 L 97 09/24/20 08:45 62 13 95 09/24/20 08:31 56 L 8 L 95 09/24/20 08:30 59 L 10 L 112/55 L 94 09/24/20 08:15 69 15 98 09/24/20 08:01 60 11 L 98 09/24/20 08:00 58 L 11 L 112/57 L 95 09/24/20 07:45 60 16 92 09/24/20 07:36 66 09/24/20 07:31 69 14 129/66 97 09/24/20 07:30 89 22 94 09/24/20 07:15 63 17 96 09/24/20 07:01 76 15 111/55 L 93 09/24/20 07:00 84 24 92 09/24/20 06:45 63 18 99 09/24/20 06:30 69 23 120/58 L 98 09/24/20 06:15 71 16 91 09/24/20 06:00 70 18 125/56 L 92 09/24/20 05:45 73 14 92 09/24/20 05:30 58 L 15 125/63 97 09/24/20 05:15 73 19 97 09/24/20 05:14 09/24/20 05:00 71 14 145/72 H 99 09/24/20 04:45 66 23 139/72 98 09/24/20 04:30 66 16 97 09/24/20 04:15 60 13 99 09/24/20 04:12 36.5 C 64 20 122/77 98 09/24/20 03:34 159/76 H 09/24/20 03:30 36.8 C 46 L 18 129/52 L 97 Pulse Ox 09/24/20 14:50 09/24/20 14:46 09/24/20 14:45 09/24/20 14:40 09/24/20 14:35 09/24/20 14:30 09/24/20 14:25 09/24/20 14:20 09/24/20 14:15 09/24/20 14:10 09/24/20 14:05 09/24/20 14:00 09/24/20 13:55 09/24/20 13:45 09/24/20 13:40 09/24/20 13:36 09/24/20 13:32 09/24/20 13:31 09/24/20 13:30 09/24/20 13:25 09/24/20 13:20 09/24/20 11:39 09/24/20 11:30 09/24/20 11:15 09/24/20 11:01 09/24/20 11:00 09/24/20 10:45 09/24/20 10:31 09/24/20 10:30 09/24/20 10:15 09/24/20 10:00 09/24/20 09:45 09/24/20 09:31 09/24/20 09:30 09/24/20 09:15 09/24/20 09:01 09/24/20 09:00 09/24/20 08:45 09/24/20 08:31 09/24/20 08:30 09/24/20 08:15 09/24/20 08:01 09/24/20 08:00 09/24/20 07:45 09/24/20 07:36 09/24/20 07:31 09/24/20 07:30 09/24/20 07:15 09/24/20 07:01 09/24/20 07:00 09/24/20 06:45 09/24/20 06:30 09/24/20 06:15 09/24/20 06:00 09/24/20 05:45 09/24/20 05:30 09/24/20 05:15 09/24/20 05:14 98 09/24/20 05:00 09/24/20 04:45 09/24/20 04:30 09/24/20 04:15 09/24/20 04:12 09/24/20 03:34 09/24/20 03:30
[2020-09-24] MEDS ORDERED: TERAZOSIN HCL 5 MG CAP PO SCH (21:00)
[2020-09-25] MEDS: cefTRIAXone SODIUM 2,000 MG in DEXTROSE 5% 50 ML IV SCH (06:40)
[2020-09-25] MEDS: ACETAMINOPHEN 500 MG TAB PO SCH (08:09)
[2020-09-25] MEDS: FINASTERIDE 5 MG TAB PO SCH (08:10)
--- NOTE | 2020-09-25 09:31 | XRay Report ---
TWO VIEW CHEST CLINICAL HISTORY: Status post pacemaker implantation. FINDINGS: PA and lateral chest radiographs are compared to study dated 09/23/2020. A 2-lead cardiac pa cemaker is new from previous and partially obscures the left upper chest. Leads project over the righ t atrial appendage and right ventricle. The cardiomediastinal silhouette is unremarkable noting ather osclerotic calcification of the thoracic aorta. The pulmonary vasculature is noncongested. Chronic in terstitial thickening is similar to previous. No airspace consolidation or pleural effusion is identi fied. There is a left apical pneumothorax approximately 2 cm pleural separation. The skeletal structu res are osteopenic. The bony thorax appears intact. IMPRESSION: 1. A 2-lead cardiac pacemaker has been placed as above. 2. Small left apical pneumothorax. 3. There is no evidence of congestive failure. 4. No airspace consolidation or pleural effusion is identified. ACT 112: Negative or not required by law. Electronically signed by: Toni Rodrigues M.D. 09/25/2020 9:30 AM
--- NOTE | 2020-09-25 09:50 | Cardiology Progress Note ---
Date of Service September 25, 2020 Assessment & Plan (1) Status post placement of cardiac pacemaker: He is doing well postop, the site looks good and he feels well. Unfortunately he does have a small left apical pneumothorax however I believe it is small enough that I would not keep him here in the hospital. He should have another chest x-ray tomorrow, but it certainly does not need a chest tube and most likely occurred at the time of implant which was almost 24 hours ago and therefore further expansion is very unlikely. Admission and Anticipated Discharge Date Admission Date: September 24, 2020 Subjective He is feeling well today, minimal incisional discomfort, no chest discomfort or shortness of breath. Physical Exam Physical Exam: The incision is clean and dry, minor bruising. No swelling. Dressing changed. Results & Data ([facility]) Vital Signs (Past 12 Hours) Vital Signs Temp Pulse Pulse Resp BP Pulse Ox Pulse Ox 09/25/20 07:14 36.8 C 65 20 106/55 L 96 09/25/20 06:30 78 09/25/20 06:17 36.8 C 75 18 109/67 95 09/25/20 05:00 98 09/25/20 00:41 36.8 C 70 18 100/53 L 96 Laboratory Results Cardiac Enzymes 09/24/20 Range/Units 09:22 Troponin I < 0.015 (0-0.045) ng/ml Intake and Output 09/24/20 09/25/20 09/25/20 22:59 06:59 14:59 Intake Total 120 / 1975.573 70 / 70 Output Total 175 / 2745 350 / 2745 Balance -55 / -769.427 -350 / -769.427 70 / 70 Intake: IV 70 / 70 cefTRIAXone SODIUM 2,000 mg In 70 / 70 Dextrose 5% 50 ml @ 100 mls/hr IV Q24H [facility] Rx#:[id number] Oral 120 / 360 Output: Urine 350 / 2550 Other 175 / 175 Other: Weight 89.9 kg Weight Measurement Method Standing Scale Diagnostic Findings Postop ECG: Telemetry: Intermittently atrial pacing appropriately, intact AV conduction, normal pacer operation Pacemaker evaluation: Excellent pacing and sensing characteristics Chest x-ray: Good lead position, small left apical pneumothorax PG Care Time/CCT Total # of Minutes Spent Total Time Spent with Patient: Total time spent is greater than 50% in coord ination of care (as documented) at patient's floor/unit and/or counseling patient: Coding Level of Care Code 60933 Post Operative Follow-Up Diagnoses Status post placement of cardiac pacemaker Z95.0
--- NOTE | 2020-09-25 12:00 | Cardiology Progress Note ---
Date of Service September 25, 2020 Assessment & Plan (1) Syncope: Patient is a 80-year-old male without prior cardiac history who presents after suffering an acute syncopal event at rest. Since admission has demonstrated episodes of sinus arrest and profound pauses mildly symptomatic. Longest pause 18 seconds. Rhythm appears to be predominantly sinus arrest rather than AV block. Patient received atropine for additional episodes of bradycardia with minimal response. Patient has been transferred to the intensive care unit external pacemaker pads in place. Low-dose dopamine infusion has been done with heart rates remaining in the 60s and 70s. No further pauses with cough or mild Valsalva. Lyme titer initially positive though no history of rash or exposure. Patient referred yesterday underwent dual-chamber pacemaker insertion with good clinical result. Very small postprocedural pneumothorax noted Brief post procedure atrial fibrillation observed without recurrent Recommendations: Patient may be discharged home Will need chest x-ray tomorrow afternoon at [facility] to reassess pneumothorax, results called to Dr. Fofana Arrangements being made for pacemaker clinic and cardiology follow-up in the next 2 weeks time. Wound check scheduled per Dr. Villanueva (2) Sinus arrest: Admission and Anticipated Discharge Date Admission Date: September 24, 2020 Subjective Patient seen and examined, chart, medications, telemetry reviewed. Patient "sleepy this morning". No chest pains. No fevers chills. Pacemaker functioning appropriately Very small pneumothorax post procedure without respiratory distress. Surgical incision healing well Patient ambulatory in room without difficulty. Review of Systems Review of Systems: All systems reviewed & are unremarkable except as noted in Subjective Physical Exam Constitutional: WD/WN, vitals as above Eyes: PERRL, conjunctivae normal, anicteric sclerae ENMT: external ear and nose normal, oropharynx normal Neck: trachea midline, no thyromegaly Respiratory: normal respiratory effort, lungs clear to auscultation Cardiovascular: Rate/Rhythm: regular rate and regular rhythm Heart Sounds: normal S1 and normal S2; no gallop and no murmur Palpation: normal PMI Vessels: normal carotid upstroke and radial pulses present; no JVD and no carotid bruit Extremities: no edema Chest (Breasts): Chest: + pacemaker (Site bandaged and clean, no) Gastrointestinal (Abdomen): normal bowel sounds, soft, nontender, no hepatosplenomegaly Musculoskeletal: no cyanosis or clubbing, extremities motor strength 5/5 Skin: no rashes, warm and dry Neurologic: PERRL, EOMI, accommodation nl, no face palsy, no dysarthria Psychiatric: A+Ox3, euthymic affect Results & Data ([facility]) Vital Signs (Past 12 Hours) Vital Signs Temp Pulse Pulse Resp BP Pulse Ox Pulse Ox 09/25/20 11:52 36.7 C 60 20 101/67 98 09/25/20 07:14 36.8 C 65 20 106/55 L 96 09/25/20 06:30 78 09/25/20 06:17 36.8 C 75 18 109/67 95 09/25/20 05:00 98 09/25/20 00:41 36.8 C 70 18 100/53 L 96 (1) Syncope Syncope type: unspecified Qualified Code(s): R55 - Syncope and collapse
--- NOTE | 2020-09-25 15:24 | Discharge Summary ---
Date of Service September 25, 2020 Admission HPI Per Admitting Provider DICTATED BY: Jose Zarco MD DATE OF ADMISSION: 09/23/2020 CHIEF COMPLAINT: Syncope. HISTORY OF PRESENT ILLNESS: A 80-year-old male with past medical history significant for chronic kidney disease stage IIIA, BPH, history of displacement of lumbar disk, history of colon polyps, who lives alone, comes because of syncope. The patient was sitting in a chair and he was trying to get up and just he turned on the chair and the next thing he remembers he was fallen on the floor and he lost consciousness for a few seconds. After that he was able to get up and he saw blood in his hand because the hand was close to his head and there was a bruise on the left side of his head. Because of the bruise he came to the ER. Currently, resting comfortably and hemodynamically stable. Denies any chest pain. No shortness of breath, no cough, no fever, no chills, no headache, no blurred visions, no double vision, no earache, no runny nose, no sore throat, no nausea, no abdominal pain. Normal bowel and bladder movements. He has BPH and he takes medications for that and no change in medications recently. He says in 2004 when he was in the [place] he had 2 syncopal episodes and he ended up in the hospital for about a week and after all the workup, he was told he was dehydrated,.He says he is eating and drinking fine and he works out at home and when he is working out, no complaint of chest pain or shortness of breath. ALLERGIES: No known drug allergies. Principal Diagnosis Syncope: Symptomatic bradycardia Status post permanent pacemaker placement Positive Lyme titer Discharge Data Allergies Allergy/AdvReac Type Severity Reaction Status Date / Time No Known Allergies Allergy Mild Verified 09/23/20 20:46 Consultations 09/23/20 21:58 ED Decision to Admit Stat 09/24/20 05:05 Consult Instructional Developer Routine 09/24/20 06:43 Consult Cardiac Electrophysiology Routine 09/24/20 08:00 Consult Cardiology Routine Procedures Performed Operation Date: 09/24/20 12:00 Actual Procedures p Pacemaker Insertion(Left) - Rocco Villanueva MD Ordered Studies 09/23/20 20:40 CT cervical spine wo con Stat CT head/brain wo con Stat 09/24/20 [place] pacemaker insert Routine 09/24/20 00:00 US carotid doppler BI Routine Hospital Course (1) Symptomatic bradycardia: presented with syncope and fall ( similar episodes in past ) noted episodes of bradycardia and sinus pause appreciate input from Cardiology s/p permanent pacemaker placement Patient has been doing very well post pacemaker placement, Denies any dizzy spell or lightheadedness, has been walking well, Very eager to be discharged home Hest x-ray shows small left apical pneumothorax post pacemaker placement, Does not have any hypoxia no pleuritic chest pain, Seen by cardiology and electrophysiology/cardiology Dr. Villanueva Patient can be discharged home today, will have a repeat chest x-ray done tomorrow Expected to be spontaneous resolution of small apical pneumothorax Patient will be seen by pacemaker clinic/cardiology in a week for wound checkup Instruction for activity post pacemaker placement updated by cardiology (2) Sinus node dysfunction: (3) Positive Lyme disease serology: IgM positive -suggestive of past exposure , western blot confirmatory test ordered -pending Treated with IV rocephin Will be discharged on 7 days of p.o. doxycycline Full code disposition : Discharged to home today Total Time Total Time Spent Total Time Spent (In Minutes): 35 minutes Total Time Includes: Examination of the Patient, Discharge Planning and Medication Reconciliation Discharge Plan Discharge Items Patient Disposition: Home - Self-Care Reason For Visit: SYNCOPE Discharge Diagnosis: Syncope: Symptomatic bradycardia Status post permanent pacemaker placement Positive Lyme titer Activity: Per Instructions section Lifting: Gradually increase as tolerated Bathing: May shower/bathe in 3 days Exercise/Sports: Gradually increase as tolerated Driving/Machine Use: No limitations Non-emergency contact: Primary Care Provider Call non-emergency contact if: you have any medication questions Follow-up/Referrals: Rocco Villanueva MD [Physician] - (Follow-up in clinic in a week for wound check) Luca Fofana MD [Physician] - Chandra Garner DO [Primary Care Provider] - (Hospital follow-up with family physician in a week. Office will call with appointment) Diet: Regular Ambulatory Orders: XR chest 2V PA/lateral (Routine) Timeframe: [id number] Location: Determined by Patient Ordered By: Edwina Ro Addtl Attending Provider Instructions: ACTIVITY RECOMMENDATIONS: * Do not raise affected arm over head for 2 weeks. SPECIAL CARE INSTRUCTIONS: * If bleeding occurs, apply direct pressure to area for 5 minutes. * Call your doctor if you have severe pain, fever, drainage or bleeding at site. * Keep dressing on and dry for 48 hours then remove. * Keep any scheduled doctor's appointment. * Implant Card - hand held device with website information given. SKIN IRRITATION: * You may experience some redness and/or swelling in the area where radiation was administered. If any skin irritation occurs, please contact your family physician. FOLLOW UP VISIT: Keep any scheduled doctor appointments. Addtl [place] Provider Instructions: Please take all medications as instructed on discharge list below. It is recommended that you follow-up with your primary care physician within 1-2 weeks of hospital discharge to ensure you are still doing well. Please call if you have any questions or problems. You can reach a [facility] hospitalist on duty at [facility] 24 hours a day by calling [phone] Chest x-ray today showed small amount of air in the upper part of the lung(pneumothorax) after pacemaker placement, Expected to resolved spontaneously Chest x-ray tomorrow 09/26/2020 [facility]-results will be referred to Dr. Fofana Pending Studies at Discharge: No Stand-Alone Forms: My [facility] [employer], Smoking Cessation Medications and DC Order Prescriptions: New doxycycline hyclate 100 mg capsule 100 mg PO BID 7 Days Qty: 14 RF: 0 Continued acetaminophen [Tylenol Extra Strength] 500 mg Tablet 1,000 mg PO QAM RF: 0 terazosin 10 mg capsule 10 mg PO HS RF: 0 finasteride 5 mg tablet 5 mg PO DAILY RF: 0 glucosamine-chondroitin [Osteo Bi-Flex] 250-200 mg Tablet 2 tab PO DAILY RF: 0 Discharge Orders: Discharge Order (Routine); Ordered 09/25/20 Ordered By: Edwina Strong/Other Patient Handouts: ED Pneumothorax, Spontaneous Admission Data Admit Date/Time: 09/24/20 13:41 Attending Provider: Edwina Ro Admit Provider: Jose Zarco Primary Care Provider: Chandra Garner Other Providers: Jose Zarco ; Lyndon Aldana ; Rocco Villanueva ; Luca Fofana Other Interventions: Discharge Summary Assessment (RN) Last Done: 09/25/20 15:35 Supervising Physician Co-Signing Physician Notes I have personally evaluated and examined this patient. I agree with assessment and plan of Dulce Mcfadden PA-C. Bacitracin/local wound care to facial abrasions anticipate pacemaker placement with electrophysiology today. Remain n.p.o. until formal decision is made regarding procedural status.
--- NOTE | 2020-09-26 12:31 | Electrocardiogram Report ---
Test Reason : Blood Pressure : / mmHG Vent. Rate : 057 BPM Atrial Rate : 057 BPM P-R Int : 240 ms QRS Dur : 082 ms QT Int : 422 ms P-R-T Axes : 073 -25 065 degrees QTc Int : 410 ms Sinus bradycardia with 1st degree A-V block Otherwise normal ECG When compared with ECG of 22-OCT-2006 09:55, No significant change was found Confirmed by Rocco Villanueva ([id number]) on 09/26/2020 12:31:33 PM Referred By: REFERRED SELF Confirmed By:Rocco Villanueva
--- NOTE | 2020-09-26 13:05 | Electrocardiogram Report ---
Test Reason : Blood Pressure : / mmHG Vent. Rate : 060 BPM Atrial Rate : 060 BPM P-R Int : 274 ms QRS Dur : 082 ms QT Int : 428 ms P-R-T Axes : 083 -61 060 degrees QTc Int : 428 ms Sinus rhythm with 1st degree A-V block Left axis deviation Pulmonary disease pattern Abnormal ECG When compared with ECG of 23-SEP-2020 18:25, (unconfirmed) No significant change was found Confirmed by Rocco Villanueva ([id number]) on 09/26/2020 1:05:12 PM Referred By: REFERRED SELF Confirmed By:Rocco Villanueva
--- NOTE | 2020-09-26 13:06 | Electrocardiogram Report ---
Test Reason : Blood Pressure : / mmHG Vent. Rate : 072 BPM Atrial Rate : 072 BPM P-R Int : 226 ms QRS Dur : 078 ms QT Int : 414 ms P-R-T Axes : 077 -77 072 degrees QTc Int : 453 ms Sinus rhythm with sinus arrhythmia with 1st degree A-V block Left axis deviation Nonspecific ST abnormality Abnormal ECG When compared with ECG of 24-SEP-2020 03:51, (unconfirmed) No significant change was found Confirmed by Rocco Villanueva ([id number]) on 09/26/2020 1:06:01 PM Referred By: REFERRED SELF Confirmed By:Rocco Villanueva
[2020-09-27 11:03] LABS: 18KDIGG Band NON-REACTIVE; 23KDIGG Band NON-REACTIVE; 23KDIGM Band NON-REACTIVE; 28KDIGG Band NON-REACTIVE; 30KDIGG Band NON-REACTIVE; 39KDIGG Band NON-REACTIVE; 39KDIGM Band NON-REACTIVE; 41KDIGG Band NON-REACTIVE; 41KDIGM Band NON-REACTIVE; 45KDIGG Band NON-REACTIVE; 58KDIGG Band NON-REACTIVE; 66KDIGG Band NON-REACTIVE; 93KDIGG Band NON-REACTIVE; Lyme Antibodies, WB IgG NEGATIVE (NEGATIVE); Lyme Antibodies, WB IgM NEGATIVE (NEGATIVE)
--- NOTE | 2020-10-05 18:21 | Coding Query ---
CODING QUERY To promote full compliance with coding requirements relating to patient care, provider participation is requested in all cases of camp assistant uncertainty. Please assist us with the question(s) below: Coding Question(s): Patient status post dual pacer placement had apical pneumothorax . Please check below the phrase that describes the pneumothorax . Thanks for your help! LUCY Abebe [facility] Physician's Response(s): The apiical pneumothorax is an expected occurrence after pacemaker placement ___x The apical pneumothorax is a complication of the pacemaker placement Other: cannot clinically correlate if the pneumothorax is a complication of the pacemaker placement Other/ Please document: Principal Diagnosis: "that condition established after study, to be chiefly responsible for occasioning the admission of the patient to the hospital for care." Co-Existing Principal Diagnosis: "when two or more diagnoses equally meet the criteria for principal diagnosis as determined by the circumstances of admission, diagnostic work up, and/or therapy provided, and the Alphabetic Index, Tabular List, or another coding guideline does not provide sequencing direction, any one of the diagnoses may be sequenced first." "When the physician has documented what appears to be a current diagnosis in the body of the record, but has not included the diagnosis in the final diagnostic statement, the physician should be asked whether the diagnosis should be added." (Source [facility]oding [facility] 2 QTR90. p3-4) ANNI
== END 2020-09-25 16:15 | disposition home or self-care (01) | DRG 243 ==
LOC: 2S 18:04 → ED 18:04 → 2S 23:15 → 1E 09-24 04:19 → 2E 09-24 14:35